=== PATIENT | female | born 1930 | race Caucasian/White ===

== ENCOUNTER 2016-09-04 01:34 | Inpatient (IN) | payer MEDICARE, BC ==
[2016-09-04] VITALS (11 sets, daily range): BP systolic 79–124; BP diastolic 47–85
[~2016-09-04] VITALS: Ht 149.9 cm; Wt 40.8 kg
[2016-09-04] MEDS ORDERED: Pantoprazole Inj IV ONE (02:15)
[2016-09-04 02:40] LABS: MEAN CORPUSCULAR HEMOGLOBIN 23.6 PG (27.0-31.0); MEAN CORPUSCULAR HGB CONC 31.8 G/DL (32.0-36.0); MEAN CORPUSCULAR VOLUME 74 FL (80-99); MEAN PLATELET VOLUME 6.2 FL (6.5-10.1); PLATELET COUNT 450 K/UL (150-450); RED BLOOD COUNT 6.06 M/UL (4.20-5.40); RED CELL DISTRIBUTION WIDTH 20.2 % (11.6-14.8)
[2016-09-04 02:53] LABS: WHITE BLOOD COUNT 31.1 K/UL (4.8-10.8)
[2016-09-04 03:01] LABS: ALANINE AMINOTRANSFERASE 87 U/L (3-33); ANION GAP 13 (5-15); ASPARTATE AMINO TRANSFERASE 79 U/L (5-40); CALCIUM 9.7 mg/dL (8.6-10.2); CARBON DIOXIDE 27 mEQ/L (20-30); CHLORIDE 91 mEQ/L (98-107); CREATININE 0.8 mg/dL (0.5-0.9); HEMOLYSIS 4; LIPASE 18 U/L (< 60); POTASSIUM 4.8 mEQ/L (3.4-4.9); SODIUM 131 mEQ/L (135-145); TOTAL PROTEIN 4.2 g/dL (6.6-8.7)
[2016-09-04 03:04] LABS: PROTHROMBIN TIME 10.3 SEC (9.30-11.50)
[2016-09-04 03:06] LABS: TROPONIN I < 0.30 ng/mL (<=0.30)
[2016-09-04 03:24] LABS: CKMB < 1.5 ng/mL (< 3.8)
[2016-09-04 03:31] LABS: APPEARANCE,URINE CLEAR; KETONES,URINE NEGATIVE (NEGATIVE); LEUKOCYTE ESTERASE ,URINE NEGATIVE (NEGATIVE); NITRITE,URINE NEGATIVE (NEGATIVE); PH,URINE 6 (4.5-8.0); PROTEIN,URINE 1+ (NEGATIVE); UROBILINOGEN,URINE NORMAL MG/DL (0.0-1.0)
[2016-09-04 03:32] LABS: RBC,URINE 0-2 /HPF (0 - 2); SQUAMOUS EPITHELIAL CELL,UR FEW /LPF (NONE/OCC); WBC,URINE 0 /HPF (0 - 2)
[2016-09-04] MEDS ORDERED: LOSARTAN POTAS100 MG ORAL (03:34)
[2016-09-04] MEDS ORDERED: CRESTOR10 M2 ORAL (03:34)
[2016-09-04] MEDS ORDERED: SYNTHROID112 MCG ORAL (03:34)
[2016-09-04 03:41] LABS: BAND NEUTROPHILS % (MANUAL) 2 % (0-8); BASOPHILS % (MANUAL) 0 % (0-2); EOSINOPHILS % (MANUAL) 0 % (0-3); LYMPHOCYTES % (MANUAL) 11 % (20-45); NEUTROPHILS % (MANUAL) 80 % (45-75); PLATELET ESTIMATE ADEQUATE; TOTAL CELLS COUNTED 100
[2016-09-04 03:42] LABS: OVALOCYTES 2+
[2016-09-04 03:43] LABS: ANISOCYTOSIS 1+; PLATELET MORPHOLOGY NORMAL; POIKILOCYTOSIS 1+
[2016-09-04] MEDS ORDERED: BENZONATATE100 MG ORAL (04:07)
[2016-09-04] MEDS ORDERED: DILANTIN100 MG ORAL (04:08)
[2016-09-04] MEDS ORDERED: ASPIRIN81 MG ORAL (04:09)
[2016-09-04] MEDS ORDERED: Piperacillin/Tazobactam 3.375 GM in NS 110 ML IVPB ONE (04:30)
[2016-09-04 04:36] LABS: REFLEX LACTIC ACID YES OR NO YES
[2016-09-04] MEDS ORDERED: Zosyn 3.375gm inj ONE (04:45)
--- NOTE | 2016-09-04 07:33 | Emergency Room Report ---
History of Present Illness General Chief Complaint: Diarrhea Source: Medical Record, EMS Present Illness HPI 86-year-old female presents to ED for evaluation of diarrhea. Per EMS daughter called 911 because patient had a very large bowel movement tonight. Per daughter it was very dark. Notes having diarrhea for the last 2 days. Patient has dementia and is unable to provide any additional history at this time. No reported fevers or chills. No reported nausea or vomiting. No other aggravating relieving factors. Denies any other associated symptoms Allergies: Coded Allergies: CODEINE (Verified Allergy, Unknown, 09/04/16) Patient History Past Medical History: HTN, psych hx Past Surgical History: none Pertinent Family History: none Social History: Denies: alcohol use, drug use, smoking Now: No Immunizations: UTD Reviewed Nursing Documentation: PMH: Agreed, PSxH: Agreed Nursing Documentation-PMH Hx Cardiac Problems: Yes - HIGH CHOLESTEROL,THYROID PROBLEM Hx Hypertension: Yes History Of Psychiatric Problem: Yes - DEMENTIA Hx Seizures: Yes Review of Systems All Other Systems: limited Physical Exam Vital Signs Date Time Temp Pulse Resp B/P Pulse Ox O2 Delivery O2 Flow Rate FiO2 09/04/16 01:42 98.8 98 16 124/85 94 Room Air Sp02 EP Interpretation: reviewed, normal General Appearance: mild distress, thin Head: normocephalic Eyes: bilateral eye PERRL, bilateral eye normal inspection ENT: normal ENT inspection Neck: normal inspection Respiratory: chest non-tender, lungs clear, normal breath sounds, speaking full sentences Cardiovascular #1: regular rate, rhythm, no edema Gastrointestinal: normal bowel sounds, non tender, soft, non-distended, no guarding, no rebound Rectal: heme positive stool Genitourinary: no CVA tenderness Musculoskeletal: normal inspection Neurologic: other - dementia Psychiatric: other - dementia Skin: normal color Lymphatic: normal inspection Medical Decision Making Diagnostic Impression: Primary Impression: Lower GI bleed Additional Impression: Abdominal mass Qualified Codes: R19.00 - Intra-abdominal and pelvic swelling, mass and lump, unspecified site ER Course Hospital Course 86-year-old female presents to ED with dark-colored diarrhea x2 days Differential diagnoses include:LGIB, diarrhea, colitis, dehydration Clinical course Patient placed on stretcher. child monitor. After initial history and physical I ordered labs, IV fluids, UA, CT scan Labs - significant leukocytosis, Hb/Hct stable. electrolytes ok, UA negative CT abdomen and pelvis - large mass in left mid abdomen causing L hydroureter and hydronephrosis Abx given. patient then became hypotensive but slowly improving with IVFs Case discussed with Dr. Villaseñor and he agreed to accept the patient to his service for further care and support I feel this is a highly complex case requiring extensive working including EKG/ Rhythm strip, Xray/CT/US, Blood/urine lab work, repeat exams while in ED, and administration of strong opiates/narcotics for pain control, admission to hospital or close patient follow up. Diagnosis - LGIB, abdominal mass Patient admitted to telemetry in serious condition Labs Test 09/04/16 02:25 09/04/16 03:02 09/04/16 05:04 White Blood Count 31.1 K/UL (4.8-10.8) Red Blood Count 6.06 M/UL (4.20-5.40) Hemoglobin 14.3 G/DL (12.0-16.0) Hematocrit 45.1 % (37.0-47.0) Mean Corpuscular Volume 74 FL (80-99) Mean Corpuscular Hemoglobin 23.6 PG (27.0-31.0) Mean Corpuscular Hemoglobin Concent 31.8 G/DL (32.0-36.0) Red Cell Distribution Width 20.2 % (11.6-14.8) Platelet Count 450 K/UL (150-450) Mean Platelet Volume 6.2 FL (6.5-10.1) Neutrophils (%) (Auto) % (45.0-75.0) Lymphocytes (%) (Auto) % (20.0-45.0) Monocytes (%) (Auto) % (1.0-10.0) Eosinophils (%) (Auto) % (0.0-3.0) Basophils (%) (Auto) % (0.0-2.0) Differential Total Cells Counted 100 Neutrophils % (Manual) 80 % (45-75) Lymphocytes % (Manual) 11 % (20-45) Monocytes % (Manual) 7 % (1-10) Eosinophils % (Manual) 0 % (0-3) Basophils % (Manual) 0 % (0-2) Band Neutrophils 2 % (0-8) Platelet Estimate Adequate Platelet Morphology Normal Poikilocytosis 1+ Anisocytosis 1+ Ovalocytes 2+ Prothrombin Time 10.3 SEC (9.30-11.50) Prothromb Time International Ratio 1.0 (0.9-1.1) Activated Partial Thromboplast Time 24 SEC (23-33) Sodium Level 131 mEQ/L (135-145) Potassium Level 4.8 mEQ/L (3.4-4.9) Chloride Level 91 mEQ/L (98-107) Carbon Dioxide Level 27 mEQ/L (20-30) Anion Gap 13 (5-15) Blood Urea Nitrogen 41 mg/dL (7-23) Creatinine 0.8 mg/dL (0.5-0.9) Estimat Glomerular Filtration Rate mL/min (>60) Glucose Level 171 mg/dL (74-106) Lactic Acid Level 2.10 mmol/L (0.66-2.22) 2.20 mmol/L (0.66-2.22) Calcium Level 9.7 mg/dL (8.6-10.2) Total Bilirubin < 0.2 mg/dL (0.0-1.2) Aspartate Amino Transf (AST/SGOT) 79 U/L (5-40) Alanine Aminotransferase (ALT/SGPT) 87 U/L (3-33) Alkaline Phosphatase 86 U/L (35-104) Creatine Kinase MB < 1.5 ng/mL (< 3.8) Troponin I < 0.30 ng/mL (<=0.30) Total Protein 4.2 g/dL (6.6-8.7) Albumin 2.1 g/dL (3.5-5.2) Globulin 2.1 g/dL Albumin/Globulin Ratio 1.0 (1.0-2.7) Lipase 18 U/L (< 60) Urine Color Yellow Urine Appearance Clear Urine pH 6 (4.5-8.0) Urine Specific [place] 1.015 (1.005-1.035) Urine Protein 1+ (NEGATIVE) Urine Glucose (UA) Negative (NEGATIVE) Urine Ketones Negative (NEGATIVE) Urine Occult Blood 1+ (NEGATIVE) Urine Nitrite Negative (NEGATIVE) Urine Bilirubin Negative (NEGATIVE) Urine Urobilinogen Normal MG/DL (0.0-1.0) Urine Leukocyte Esterase Negative (NEGATIVE) Urine RBC 0-2 /HPF (0 - 2) Urine WBC 0 /HPF (0 - 2) Urine Squamous Epithelial Cells Few /LPF (NONE/OCC) Urine Bacteria None /HPF (NONE) CT/MRI/US Diagnostic Results CT/MRI/US Diagnostic Results : Imaging Test Ordered: CT A/P Impression Large heterogeneously enhancing multilobulated mass in left mid abdomen, measuring 12 cm craniocaudal, 7 cm transverse, and 11 cm AP, causing lateral displacement of left psoas muscle and compression of distal ureter causing left hydroureter and hydronephrosis Last Vital Signs Date Time Temp Pulse Resp B/P Pulse Ox O2 Delivery O2 Flow Rate FiO2 09/04/16 05:50 97.9 89 16 95/57 96 Room Air Status: improved Disposition: ADMITTED INPATIENT Condition: Serious Referrals: NON PHYSICIAN (PCP) SARAHY LEVIN M.D. September 04, 2016 07:33
--- NOTE | 2016-09-04 07:39 | Emergency Room Report ---
History of Present Illness General Chief Complaint: Diarrhea Source: Medical Record, EMS Present Illness Allergies: Coded Allergies: CODEINE (Verified Allergy, Unknown, 09/04/16) Patient History Now: No Nursing Documentation-PMH Hx Cardiac Problems: Yes - HIGH CHOLESTEROL,THYROID PROBLEM Hx Hypertension: Yes History Of Psychiatric Problem: Yes - DEMENTIA Hx Seizures: Yes Physical Exam Vital Signs Date Time Temp Pulse Resp B/P Pulse Ox O2 Delivery O2 Flow Rate FiO2 09/04/16 01:42 98.8 98 16 124/85 94 Room Air 09/04/16 07:35 2.0 Medical Decision Making Diagnostic Impression: Primary Impression: Lower GI bleed Additional Impression: Abdominal mass Qualified Codes: R19.00 - Intra-abdominal and pelvic swelling, mass and lump, unspecified site ER Course EKG- NSR, no acute ischemic changes EKG Diagnostic Results Rate: normal Rhythm: NSR ST Segments: no acute changes ASA given to the pt in ED: No Rhythm Strip Diag. Results EP Interpretation: yes Rhythm: NSR, no PVC's, no ectopy Last Vital Signs Date Time Temp Pulse Resp B/P Pulse Ox O2 Delivery O2 Flow Rate FiO2 09/04/16 07:35 20 90/49 100 Nasal Cannula 2.0 09/04/16 05:50 97.9 89 Status: improved Disposition: ADMITTED INPATIENT Condition: Serious Referrals: NON PHYSICIAN (PCP) SARAHY LEVIN M.D. September 04, 2016 07:39
[2016-09-04] MEDS ORDERED: Mylanta II UD 30ml ORAL PRN ×3 (08:00→14:00)
[2016-09-04] MEDS ORDERED: Nitroglycerin Subl 0.4mg tab (Bottle Of 25) SL PRN ×3 (08:00→13:45)
[2016-09-04] MEDS ORDERED: Morphine Sulfate 2mg/ml Inj IVP PRN ×3 (08:00→15:00)
[2016-09-04] MEDS ORDERED: D5NS 1,000 ML IV SCH ×2 (08:30→11:00)
[2016-09-04] MEDS ORDERED: Phytonadione 10 MG in D5W 55 ML IVPB ONE ×3 (09:00→11:00)
[2016-09-04] MEDS ORDERED: Losartan 50mg tab ORAL PRN ×3 (10:00→14:00)
[2016-09-04] MEDS ORDERED: Amikacin Rx to dose MISC PRN ×2 (11:15→14:00)
--- NOTE | 2016-09-04 11:21 | History and Physical ---
History of Present Illness General Date patient seen: September 04, 2016 Reason for Hospitalization: Diarrhea Present Illness HPI 86-year-old female with hx of HTN, dementia, bed bound presents from home to ED for evaluation of dark stool Per EMS daughter called 911 because patient had a very large dark bowel movement last night as well as for the last 2 days. Patient has dementia and is unable to provide any additional history at this time. Pt was hypotensive in ER initially. Her BP improved with IV fluids but now bp is at 80's. She has cold extremities. She is awake and seems comfortable. Allergies: Coded Allergies: CODEINE (Verified Allergy, Unknown, 09/04/16) Medication History Scheduled Aspirin* (Aspirin*), 81 MG ORAL DAILY, (Reported) Levothyroxine Sodium* (Synthroid*), 112 MCG ORAL DAILY, (Reported) Rosuvastatin Calcium* (Crestor*), 10 MG ORAL BEDTIME, (Reported) Scheduled PRN Benzonatate* (Benzonatate*), 100 MG ORAL THREE TIMES A DAY PRN for For Cough, ( Reported) Losartan Potassium (Losartan Potassium), 100 MG ORAL DAILY PRN for For High Blood Pressure, (Reported) Miscellaneous Medications Phenytoin Sodium Extended* (Dilantin*), Unknown Dose ORAL, (Reported) Patient History Healthcare decision maker Resuscitation status Advanced Directive on File Past Medical/Surgical History Past Medical/Surgical History: (1) Dementia (2) HTN (hypertension) (3) Seizure disorder (4) Hypothyroidism Review of Systems All Other Systems: negative except mentioned in HPI Physical Exam General Appearance: cachetic Lines, tubes and drains: peripheral HEENT: normocephalic, atraumatic Neck: non-tender, normal alignment Respiratory/Chest: chest wall non-tender, normal breath sounds Cardiovascular/Chest: normal peripheral pulses, normal rate Abdomen: normal bowel sounds, non tender Extremities: normal range of motion, severe edema, other - cold Skin Exam: mottled - in junior area bilaterally Last 24 Hour Vital Signs Date Time Temp Pulse Resp B/P Pulse Ox O2 Delivery O2 Flow Rate FiO2 09/04/16 08:41 97.8 78 20 89/56 95 Nasal Cannula 2.0 09/04/16 08:00 81 20 93/53 100 Nasal Cannula 2.0 09/04/16 07:48 97.9 20 90/49 100 Nasal Cannula 2.0 09/04/16 07:35 86 20 90/49 100 Nasal Cannula 2.0 09/04/16 05:50 97.9 89 16 95/57 96 Room Air 09/04/16 03:50 97.9 97 17 105/59 96 Room Air 09/04/16 01:50 98.8 100 16 124/85 94 Room Air 09/04/16 01:42 98.8 98 16 124/85 94 Room Air Intake and Output 09/03/16 09/04/16 19:00 07:00 Intake Total 500 ml Balance 500 ml Intake IV Total 500 ml # Voids 1 Laboratory Tests Test 09/04/16 02:25 09/04/16 02:26 09/04/16 03:02 09/04/16 05:04 White Blood Count 31.1 K/UL (4.8-10.8) *H Red Blood Count 6.06 M/UL (4.20-5.40) H Hemoglobin 14.3 G/DL (12.0-16.0) Hematocrit 45.1 % (37.0-47.0) Mean Corpuscular Volume 74 FL (80-99) L Mean Corpuscular Hemoglobin 23.6 PG (27.0-31.0) L Mean Corpuscular Hemoglobin Concent 31.8 G/DL (32.0-36.0) L Red Cell Distribution Width 20.2 % (11.6-14.8) H Platelet Count 450 K/UL (150-450) Mean Platelet Volume 6.2 FL (6.5-10.1) L Neutrophils (%) (Auto) % (45.0-75.0) Lymphocytes (%) (Auto) % (20.0-45.0) Monocytes (%) (Auto) % (1.0-10.0) Eosinophils (%) (Auto) % (0.0-3.0) Basophils (%) (Auto) % (0.0-2.0) Differential Total Cells Counted 100 Neutrophils % (Manual) 80 % (45-75) H Lymphocytes % (Manual) 11 % (20-45) L Monocytes % (Manual) 7 % (1-10) Eosinophils % (Manual) 0 % (0-3) Basophils % (Manual) 0 % (0-2) Band Neutrophils 2 % (0-8) Platelet Estimate Adequate Platelet Morphology Normal Poikilocytosis 1+ Anisocytosis 1+ Ovalocytes 2+ Prothrombin Time 10.3 SEC (9.30-11.50) Prothromb Time International Ratio 1.0 (0.9-1.1) Activated Partial Thromboplast Time 24 SEC (23-33) Sodium Level 131 mEQ/L (135-145) L Potassium Level 4.8 mEQ/L (3.4-4.9) Chloride Level 91 mEQ/L (98-107) L Carbon Dioxide Level 27 mEQ/L (20-30) Anion Gap 13 (5-15) Blood Urea Nitrogen 41 mg/dL (7-23) H Creatinine 0.8 mg/dL (0.5-0.9) Estimat Glomerular Filtration Rate mL/min (>60) Glucose Level 171 mg/dL (74-106) H Lactic Acid Level 2.10 mmol/L (0.66-2.22) 2.20 mmol/L (0.66-2.22) Calcium Level 9.7 mg/dL (8.6-10.2) Total Bilirubin < 0.2 mg/dL (0.0-1.2) Aspartate Amino Transf (AST/SGOT) 79 U/L (5-40) H Alanine Aminotransferase (ALT/SGPT) 87 U/L (3-33) H Alkaline Phosphatase 86 U/L (35-104) Creatine Kinase MB < 1.5 ng/mL (< 3.8) Troponin I < 0.30 ng/mL (<=0.30) Total Protein 4.2 g/dL (6.6-8.7) L Albumin 2.1 g/dL (3.5-5.2) L Globulin 2.1 g/dL Albumin/Globulin Ratio 1.0 (1.0-2.7) Lipase 18 U/L (< 60) CA 125 Antigen Pending Urine Color Yellow Urine Appearance Clear Urine pH 6 (4.5-8.0) Urine Specific [place] 1.015 (1.005-1.035) Urine Protein 1+ (NEGATIVE) H Urine Glucose (UA) Negative (NEGATIVE) Urine Ketones Negative (NEGATIVE) Urine Occult Blood 1+ (NEGATIVE) H Urine Nitrite Negative (NEGATIVE) Urine Bilirubin Negative (NEGATIVE) Urine Urobilinogen Normal MG/DL (0.0-1.0) Urine Leukocyte Esterase Negative (NEGATIVE) Urine RBC 0-2 /HPF (0 - 2) Urine WBC 0 /HPF (0 - 2) Urine Squamous Epithelial Cells Few /LPF (NONE/OCC) Urine Bacteria None /HPF (NONE) Height (Feet): 4 Height (Inches): 11.00 Weight (Pounds): 90 Medications Current Medications Medications (Trade) Dose Ordered Sig/Porfirio Route PRN Reason Start Time Stop Time Status Last Admin Dose Admin Acetaminophen (Tylenol) 650 mg Q4H PRN ORAL fever>100.5 09/04/16 11:00 10/04/16 10:59 Al Hydroxide/Mg Hydroxide (Mylanta II) 30 ml Q6H PRN ORAL dyspepsia 09/04/16 11:00 10/04/16 10:59 Dextrose (Dextrose 50%) STAT PRN IV Hypoglycemia 09/05/16 11:00 10/05/16 10:59 Dextrose/Sodium Chloride 1,000 ml @ 75 mls/hr [id number] IV 09/04/16 11:00 10/04/16 10:59 09/04/16 10:32 Diphenhydramine HCl (Benadryl) 25 mg Q6H PRN ORAL Itching/Pruritis 09/04/16 11:00 10/04/16 10:59 Levothyroxine Sodium (Synthroid) 112 mcg ACBREAKFAST ORAL 09/05/16 06:30 10/05/16 06:29 Losartan Potassium (Cozaar) 100 mg DAILY PRN ORAL sbp>160 09/04/16 11:00 10/04/16 10:59 Morphine Sulfate (Morphine Sulfate) 2 mg Q4H PRN IVP severe Pain (Pain Scale 7-10) 09/04/16 11:00 09/11/16 10:59 UNV Nitroglycerin (Ntg) 0.4 mg Q5M X 3 DOSES PRN SL Prn Chest Pain 09/04/16 11:00 10/04/16 10:59 Ondansetron HCl (Zofran) 4 mg Q6H PRN IVP Nausea & Vomiting 09/04/16 11:00 10/04/16 10:59 Phenytoin (Dilantin) 100 mg EVERY 8 HOURS ORAL 09/04/16 14:00 10/04/16 13:59 Phytonadione/ Dextrose (Vitamin K/D5W) 56 ml @ 110 mls/hr ONCE ONCE IVPB 09/04/16 11:00 09/04/16 11:30 09/04/16 10:32 Polyethylene Glycol (Miralax) 17 gm HSPRN PRN ORAL Constipation 09/04/16 21:00 10/04/16 20:59 Temazepam (Restoril) 15 mg HSPRN PRN ORAL Insomnia 09/04/16 21:00 09/11/16 20:59 Assessment/Plan Problem List: (1) Hemorrhagic shock SNOMED: 769589 (2) Abdominal mass ICD Codes: R19.00 - Intra-abdominal and pelvic swelling, mass and lump, unspecified site SNOMED: 054682549 Qualifiers: Qualified Codes: R19.00 - Intra-abdominal and pelvic swelling, mass and lump , unspecified site (3) Lower GI bleed ICD Codes: K92.2 - Gastrointestinal hemorrhage, unspecified SNOMED: 31596018 (4) Dementia ICD Codes: F03.90 - Unspecified dementia without behavioral disturbance SNOMED: 65272452 (5) HTN (hypertension) ICD Codes: I10 - Essential (primary) hypertension SNOMED: 29095517 (6) Hypothyroidism ICD Codes: E03.9 - Hypothyroidism, unspecified SNOMED: 38675666 (7) Seizure disorder ICD Codes: G40.909 - Epilepsy, unspecified, not intractable, without status epilepticus SNOMED: 350107440 Assessment/Plan NPO IV fluids prbc prn GI evaluation Surgery and evaluation Echo, doppler of leg arteries transfer to [facility] tumor markers dvt prophylaxis BARBARA ANDRES September 04, 2016 11:21
--- NOTE | 2016-09-04 12:29 | Diagnostic Imaging Report ---
Indication: DYSPNEA, chest pain Technique: One view of the chest Comparison: none Findings: Dense consolidation is seen at both lung bases, more so on the left than on the right. There is pleural fluid bilaterally, left greater than right. Heart size is normal. Surgical clips are seen on the right side of the mediastinum. Impression: Bilateral pleural effusions and bilateral basilar consolidation. Other findings as described
--- NOTE | 2016-09-04 12:31 | Diagnostic Imaging Report ---
Clinical Indication: Abdominal pain Technique: No oral contrast utilized, per emergency room physician request IV administration nonionic contrast. Venous phase spiral acquisition obtained through the abdomen and pelvis. Multiplanar reconstructions were generated. Total dose length product 665 mGycm. CTDIvol(s) 13 mGy. Dose reduction achieved using automated exposure control Comparison: None Findings: There is anasarca. There is diffuse and extensive edema of the subcutaneous fat, the retroperitoneal and mesenteric fat. There are moderate to large bilateral pleural effusions, slightly larger on the left than on the right. There is also small pericardial effusion There is a large mass involving the left psoas muscle and extending outside of it. This demonstrates intense peripheral enhancement but considerable central necrosis. This measures 10 cm AP by 6.7 cm transverse by 11.4 cm craniocaudad. The uterus is not demonstrated, presumed surgically absent. The liver demonstrates multiple cysts, as well as multiple subcentimeter low-attenuation lesions which are too small to characterize. The gallbladder is nondistended. No biliary ductal dilatation. The pancreas is atrophic, otherwise unremarkable. The spleen and adrenals are unremarkable. The kidneys demonstrate bilateral cysts, as well as bilateral subcentimeter low-attenuation lesions which are too small to characterize. There is mild right hydronephrosis and proximal hydroureter, although there does not appear to be any delay in enhancement of the left kidney. No pelvic mass or adenopathy. The colon demonstrates diverticulosis. No definite evidence of diverticulitis, but evaluation is limited given the degree of anasarca. There is enhancement of the colon saavedra. There is proximal jejunal wall thickening The appendix only equivocally identified, but there are no findings to suggest acute appendicitis. No free or loculated intraperitoneal air or fluid. The stomach is distended with fluid. There is apparent atelectasis of the lower esophageal sphincter, with free communication of gastric and esophageal contents. The esophagus is diffusely dilated and fluid-filled. As mentioned earlier, there are bilateral pleural effusions. There is considerable atelectasis at the left lung base. There are bilateral breast implants. That on the right appears completely ruptured. The bones demonstrate degenerative spondylosis changes. 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 There is calcification of the pubic symphysis. Impression: 10 x 6.7 x 1.4 cm mass involving the left psoas muscle, extending outside of it. Appearance is highly suspicious for malignancy. Suspect metastatic carcinoma as etiology, as enhancement characteristics and necrosis are more characteristic of such. However, primary mesenchymal tumor is certainly a possibility as well. Mild left hydronephrosis, suspect secondary to the above Proximal jejunal wall thickening, could indicate enteritis. There is colonic wall enhancement without definite thickening, could indicate mild colitis Anasarca Large bilateral pleural effusions. Left basilar parenchymal atelectasis presumably related to such Small pericardial effusion Evidence of prior hysterectomy Bilateral renal and hepatic cysts. Bilateral renal and hepatic subcentimeter low-attenuation lesions, too small to characterize, most likely benign simple cysts. No further followup necessary Patulous lower esophageal sphincter. Dilated fluid-filled esophagus, presumed secondary to such Bilateral breast implants. That on the right appears completely ruptured Degenerative spondylosis This agrees with the preliminary interpretation provided overnight by [facility] teleradiology service. The CT scanner at [facility] is accredited by the [employer] and the scans are performed -- using protocols designed to limit radiation exposure to as low as reasonably achievable to attain images of sufficient resolution adequate for diagnostic evaluation.
--- NOTE | 2016-09-04 12:47 | GI Initial Consult Note ---
Celeste Bull NMango 09/04/16 1247: History of Present Illness General Date patient seen: September 04, 2016 Time patient seen: 12:00 Reason for Hospitalization: Diarrhea Referring physician: BARBARA BURNETT Reason for Consultation: DIARRHEA Present Illness HPI 86-year-old female presents to ED for evaluation of diarrhea. Per EMS daughter called 911 because patient had a very large bowel movement tonight. Per daughter it was very dark. Notes having diarrhea for the last 2 days. Patient has dementia and is unable to provide any additional history at this time. No reported fevers or chills. No reported nausea or vomiting. No other aggravating relieving factors. Denies any other associated symptoms. GI CONSULT: HPI noted above. GI consulted for diarrhea with reports of dark stools x 2 days. KHRIS leone, JOSE. Pt presents today with stable H&H, leukocytosis, abnormal LFTs and large abdominal mass shown on CT, see full report. Unknown history of any endoscopic procedures. CT/MRI/US Diagnostic Results : Imaging Test Ordered: CT A/P Impression Large heterogeneously enhancing multilobulated mass in left mid abdomen, measuring 12 cm craniocaudal, 7 cm transverse, and 11 cm AP, causing lateral displacement of left psoas muscle and compression of distal ureter causing left hydroureter and hydronephrosis Home Meds Reported Medications Aspirin* (ASPIRIN*) 81 Mg Tab.chew, 81 MG ORAL DAILY, TAB 09/04/16 Phenytoin Sodium Extended* (DILANTIN*) 100 Mg Capsule, ORAL, #90 CAP 0 Refills 09/04/16 Benzonatate* (BENZONATATE*) 100 Mg Capsule, 100 MG ORAL THREE TIMES A DAY Y for For Cough, PERLE 09/04/16 Rosuvastatin Calcium* (CRESTOR*) 10 Mg Tablet, 10 MG ORAL BEDTIME, TAB 09/04/16 Losartan Potassium (LOSARTAN POTASSIUM) 100 Mg Tablet, 100 MG ORAL DAILY Y for For High Blood Pressure, TAB 09/04/16 Levothyroxine Sodium* (SYNTHROID*) 112 Mcg Tablet, 112 MCG ORAL DAILY, TAB Take in the morning on an empty stomach, at least 30 minutes before food. 09/04/16 Med list reviewed/reconciled: Yes Allergies: Coded Allergies: CODEINE (Verified Allergy, Unknown, 09/04/16) Patient History Limited by: medical condition History Provided By: Medical Record PMH Narrative Past Medical History: HTN, psych hx Past Surgical History: none Pertinent Family History: none Social History: Denies: alcohol use, drug use, smoking Now: No Immunizations: UTD Reviewed Nursing Documentation: PMH: Agreed, PSxH: Agreed Nursing Documentation-PM Hx Cardiac Problems: Yes - HIGH CHOLESTEROL,THYROID PROBLEM Hx Hypertension: Yes History Of Psychiatric Problem: Yes - DEMENTIA Hx Seizures: Yes Review of Systems All Other Systems: limited Physical Exam Vital Signs Date Time Temp Pulse Resp B/P Pulse Ox O2 Delivery O2 Flow Rate FiO2 09/04/16 01:42 98.8 98 16 124/85 94 Room Air 09/04/16 07:35 2.0 Sp02 EP Interpretation: reviewed Labs Laboratory Tests Test 09/04/16 02:25 09/04/16 02:26 09/04/16 03:02 09/04/16 05:04 White Blood Count 31.1 K/UL (4.8-10.8) *H Red Blood Count 6.06 M/UL (4.20-5.40) H Hemoglobin 14.3 G/DL (12.0-16.0) Hematocrit 45.1 % (37.0-47.0) Mean Corpuscular Volume 74 FL (80-99) L Mean Corpuscular Hemoglobin 23.6 PG (27.0-31.0) L Mean Corpuscular Hemoglobin Concent 31.8 G/DL (32.0-36.0) L Red Cell Distribution Width 20.2 % (11.6-14.8) H Platelet Count 450 K/UL (150-450) Mean Platelet Volume 6.2 FL (6.5-10.1) L Neutrophils (%) (Auto) % (45.0-75.0) Lymphocytes (%) (Auto) % (20.0-45.0) Monocytes (%) (Auto) % (1.0-10.0) Eosinophils (%) (Auto) % (0.0-3.0) Basophils (%) (Auto) % (0.0-2.0) Differential Total Cells Counted 100 Neutrophils % (Manual) 80 % (45-75) H Lymphocytes % (Manual) 11 % (20-45) L Monocytes % (Manual) 7 % (1-10) Eosinophils % (Manual) 0 % (0-3) Basophils % (Manual) 0 % (0-2) Band Neutrophils 2 % (0-8) Platelet Estimate Adequate Platelet Morphology Normal Poikilocytosis 1+ Anisocytosis 1+ Ovalocytes 2+ Prothrombin Time 10.3 SEC (9.30-11.50) Prothromb Time International Ratio 1.0 (0.9-1.1) Activated Partial Thromboplast Time 24 SEC (23-33) Sodium Level 131 mEQ/L (135-145) L Potassium Level 4.8 mEQ/L (3.4-4.9) Chloride Level 91 mEQ/L (98-107) L Carbon Dioxide Level 27 mEQ/L (20-30) Anion Gap 13 (5-15) Blood Urea Nitrogen 41 mg/dL (7-23) H Creatinine 0.8 mg/dL (0.5-0.9) Estimat Glomerular Filtration Rate mL/min (>60) Glucose Level 171 mg/dL (74-106) H Lactic Acid Level 2.10 mmol/L (0.66-2.22) 2.20 mmol/L (0.66-2.22) Calcium Level 9.7 mg/dL (8.6-10.2) Total Bilirubin < 0.2 mg/dL (0.0-1.2) Aspartate Amino Transf (AST/SGOT) 79 U/L (5-40) H Alanine Aminotransferase (ALT/SGPT) 87 U/L (3-33) H Alkaline Phosphatase 86 U/L (35-104) Creatine Kinase MB < 1.5 ng/mL (< 3.8) Troponin I < 0.30 ng/mL (<=0.30) Total Protein 4.2 g/dL (6.6-8.7) L Albumin 2.1 g/dL (3.5-5.2) L Globulin 2.1 g/dL Albumin/Globulin Ratio 1.0 (1.0-2.7) Lipase 18 U/L (< 60) CA 125 Antigen Pending Urine Color Yellow Urine Appearance Clear Urine pH 6 (4.5-8.0) Urine Specific [place] 1.015 (1.005-1.035) Urine Protein 1+ (NEGATIVE) H Urine Glucose (UA) Negative (NEGATIVE) Urine Ketones Negative (NEGATIVE) Urine Occult Blood 1+ (NEGATIVE) H Urine Nitrite Negative (NEGATIVE) Urine Bilirubin Negative (NEGATIVE) Urine Urobilinogen Normal MG/DL (0.0-1.0) Urine Leukocyte Esterase Negative (NEGATIVE) Urine RBC 0-2 /HPF (0 - 2) Urine WBC 0 /HPF (0 - 2) Urine Squamous Epithelial Cells Few /LPF (NONE/OCC) Urine Bacteria None /HPF (NONE) General Appearance: no apparent distress Head: normocephalic EENT: normal ENT inspection Neck: supple Respiratory: normal breath sounds Cardiovascular: normal rate Gastrointestinal: normal inspection, non tender, soft Rectal: deferred Genitourinary: no CVA tenderness Neurologic: alert Skin: normal inspection, normal color, no rash, warm/dry Lymphatic: normal inspection, no adenopathy Current Medications Current Medications Medications (Trade) Dose Ordered Sig/Porfirio Route PRN Reason Start Time Stop Time Status Last Admin Dose Admin Acetaminophen (Tylenol) 650 mg Q4H PRN ORAL fever>100.5 09/04/16 11:00 10/04/16 10:59 Al Hydroxide/Mg Hydroxide (Mylanta II) 30 ml Q6H PRN ORAL dyspepsia 09/04/16 11:00 10/04/16 10:59 Amikacin Protocol 1 ea 1 ea DAILY PRN MISC Per rx protocol 09/04/16 11:15 10/04/16 11:14 Amikacin Sulfate 500 mg/Sodium Chloride 112 ml @ 112 mls/hr Q36H IV 09/04/16 13:00 09/11/16 12:59 Dextrose (Dextrose 50%) STAT PRN IV Hypoglycemia 09/05/16 11:00 10/05/16 10:59 Dextrose/Sodium Chloride (D5ns) 1,000 ml @ 75 mls/hr [id number] IV 09/04/16 11:00 10/04/16 10:59 09/04/16 10:32 Diphenhydramine HCl (Benadryl) 25 mg Q6H PRN ORAL Itching/Pruritis 09/04/16 11:00 10/04/16 10:59 Levothyroxine Sodium (Synthroid) 112 mcg ACBREAKFAST ORAL 09/05/16 06:30 10/05/16 06:29 Losartan Potassium (Cozaar) 100 mg DAILY PRN ORAL sbp>160 09/04/16 11:00 10/04/16 10:59 Morphine Sulfate (Morphine Sulfate) 2 mg Q4H PRN IVP severe Pain (Pain Scale 7-10) 09/04/16 11:00 09/11/16 10:59 UNV Nitroglycerin (Ntg) 0.4 mg Q5M X 3 DOSES PRN SL Prn Chest Pain 09/04/16 11:00 10/04/16 10:59 Ondansetron HCl (Zofran) 4 mg Q6H PRN IVP Nausea & Vomiting 09/04/16 11:00 10/04/16 10:59 Phenytoin (Dilantin) 100 mg EVERY 8 HOURS ORAL 09/04/16 14:00 10/04/16 13:59 Piperacillin Sod/ Tazobactam Sod/ Sodium Chloride (Zosyn/Sodium Chloride) 110 ml @ 27.5 mls/hr Q8HR@0730,1530,2330 IVPB 09/04/16 15:30 09/11/16 15:29 Polyethylene Glycol (Miralax) 17 gm HSPRN PRN ORAL Constipation 09/04/16 21:00 10/04/16 20:59 Temazepam (Restoril) 15 mg HSPRN PRN ORAL Insomnia 09/04/16 21:00 09/11/16 20:59 Vancomycin HCl 1 ea 1 ea DAILY PRN MISC Per rx protocol 09/04/16 11:15 10/04/16 11:14 Vancomycin HCl/ Dextrose (Vancomycin/D5W) 275 ml @ 183.708 mls/hr Q48H IVPB 09/04/16 14:00 09/09/16 13:59 GI: Plan Problems: (1) Diarrhea (2) Abdominal mass (3) Lower GI bleed (4) Hypothyroidism (5) HTN (hypertension) (6) LFT elevation Plan APCT reviewed >> large abdominal mass defer GI procedures at this time >> recommend heme/oncology consult ordered CT guided biopsy of abdominal mass ordered tumor markers: CA19-9, CA 125, CEA ordered OB stool r/o GI bleed ordered hep panel H2B abx fu cdiff fu labs Discussed with Dr. Michel. Thank you for referring this patient, we will follow. TONJA MICHEL 09/12/16 1111: History of Present Illness General Reason for Hospitalization: Diarrhea Present Illness Home Meds Reported Medications Aspirin* (ASPIRIN*) 81 Mg Tab.chew, 81 MG ORAL DAILY, TAB 09/04/16 Phenytoin Sodium Extended* (DILANTIN*) 100 Mg Capsule, ORAL, #90 CAP 0 Refills 09/04/16 Benzonatate* (BENZONATATE*) 100 Mg Capsule, 100 MG ORAL THREE TIMES A DAY Y for For Cough, PERLE 09/04/16 Rosuvastatin Calcium* (CRESTOR*) 10 Mg Tablet, 10 MG ORAL BEDTIME, TAB 09/04/16 Losartan Potassium (LOSARTAN POTASSIUM) 100 Mg Tablet, 100 MG ORAL DAILY Y for For High Blood Pressure, TAB 09/04/16 Levothyroxine Sodium* (SYNTHROID*) 112 Mcg Tablet, 112 MCG ORAL DAILY, TAB Take in the morning on an empty stomach, at least 30 minutes before food. 09/04/16 Allergies: Coded Allergies: CODEINE (Verified Allergy, Unknown, 09/04/16) GI: Plan Plan The patient was seen and examined at bedside and all new and available data was reviewed in the patients chart. I agree with the above findings, impression and plan. (Patient seen earlier today. Signature stamp does not reflect patient encounter time.). -Michelle Timmons MDh Sathya N.PDonna September 04, 2016 12:47 TONJA MICHEL September 12, 2016 11:11
[2016-09-04] MEDS ORDERED: Amikacin 500 MG in NS 110 ML IV SCH (13:00)
[2016-09-04] MEDS: Phenytoin 100mg cap ORAL SCH ×3 (14:00→22:26)
[2016-09-04] MEDS ORDERED: Phenytoin 100mg cap ORAL SCH ×2 (14:00)
[2016-09-04] MEDS ORDERED: Vancomycin 1gm/D5W 275ml IVPB SCH ×2 (14:00)
[2016-09-04] MEDS ORDERED: Vancomycin 1 GM in D5W 275 ML IVPB SCH (14:00)
[2016-09-04] MEDS: D5NS 1,000 ML IV SCH (14:12)
[2016-09-04] MEDS ORDERED: Piperacillin/Tazobactam 3.375 GM in NS 110 ML IVPB SCH (15:30)
--- NOTE | 2016-09-04 16:07 | Wound Care Consultation ---
Wound Assessment Wound Assessment : Wound Present on Admission: Yes New Wound: No Status Change of Wound: No Wound Location Body Site Modif: mid Wound Location Body Site: other - sacrococcygeal Wound Type: pressure ulcer Gabo Test: Does not Gabo Pressure Ulcer Stage: deep tissue injury Wound Thickness: Full Thickness Wound Length: 5.5 Wound Width: 6.0 Wound Depth: utd Percent of Wound Purple/Maroon: 100 Wound Drainage Amount: None Wound Drainage Odor: None/Absent Tissue Surrounding Wound: Erythemic Wound General Appearance: Reddened - purplish Wound Comment #1 Sacrococcygeal DTI pressure ulcer #2 Both lower legs with multiple discoloration Recommendation -Local wound care per protocol for DTI -Keep clean and dry -Turn and reposition -Optimize nutrition -Low air loss overlay mattress -Offload both heels -Heel protector on both heels -Assess and f/u accordingly for any changes CYNTHIA NIÑO RN September 04, 2016 16:07
[2016-09-04] MEDS: Piperacillin/Tazobactam 3.375 GM in NS 110 ML IVPB SCH ×2 (17:26→23:46)
--- NOTE | 2016-09-04 18:19 | Cardiology Report ---
APPROVED REPORT EXAM: Two-dimensional and M-mode echocardiogram with Doppler and color Doppler. INDICATION Left ventricular function M-Mode DIMENSIONS IVSd0.5 (0.7-1.1cm)Left Atrium (MM)2.4 (1.6-4.0cm) LVDd3.1 (3.5-5.6cm)Aortic Root2.3 (2.0-3.7cm) PWd1.0 (0.7-1.1cm)Aortic Cusp Exc.1.5 (1.5-2.0cm) LVDs1.9 (2.5-4.0cm) PWs1.3 cm Technically difficult study due to poor acoustic windows due to Patients implants. Lack of apical windows. Normal left ventricular chamber size, systolic function and wall motion. Left ventricular ejection fraction estimated to be 60-65%. Mild left ventricular hypertrophy. Small posterior pericardial effusion. Mild focal aortic valve sclerosis with adequate cusp excursion Thickened mitral valve leaflets with normal excursion. Mitral annulus and aortic root calcification. Pulmonic valve not well visualized. Normal tricuspid valve structure. IVC not obtainable. A color flow and spectral Doppler study was performed and revealed: No tricuspid regurgitation.
--- NOTE | 2016-09-04 18:33 | Cardiology Report ---
APPROVED REPORT EKG Measurement Heart [id number] [place] [id number] Normal sinus rhythm Possible Left atrial enlargement Nonspecific ST and T wave abnormality Abnormal ECG
[2016-09-04] MEDS ORDERED: Miralax 17gm pkt ORAL PRN ×3 (21:00)
--- NOTE | 2016-09-04 22:32 | Consultation ---
DATE OF CONSULTATION: 09/04/2016 REASON FOR CONSULTATION: Left hydronephrosis. HISTORY: I was asked by Dr. Villaseñor to see the patient. She is an 86-year-old female that was diagnosed with a large abdominal mass and left hydronephrosis. She was admitted to the emergency department with possible GI bleeding and diarrhea. The patient has dementia and is unable to provide any additional history at the time of my consultation. She had a CT scan done for the above complaints and found to have a 10 cm left psoas mass suspicious for either metastatic or primary malignancy and mild left hydronephrosis. REVIEW OF SYMPTOMS: Unobtainable because the patient does not really answers any questions. FAMILY HISTORY: Also unknown to me. PHYSICAL EXAMINATION: GENERAL APPEARANCE: She is afebrile. VITAL SIGNS: Stable. LUNGS: Clear to auscultation. CARDIOVASCULAR: Regular rate and rhythm. ABDOMEN: Soft and slightly distended. No costovertebral tenderness. PELVIC: Normal. LABORATORY AND DIAGNOSTIC STUDIES: CT results were reviewed. She has a large heterogenic mass in the left mid abdomen approximately 10 to 12 cm and with mild left hydronephrosis most likely from external compression of the mass. Her blood test showed a white blood cell count was 31,000, hemoglobin 14, and hematocrit 45.1. Her creatinine is 0.8. Urinalysis showed 2 red blood cells and no white blood cells. ASSESSMENT AND PLAN: This is an unfortunate 86-year-old lady with abdominal mass and mild left hydronephrosis. I think at this point, I do not recommend any further action in terms of her left kidney. If she would ever be considered as a surgical candidate for the removal of this mass she probably would need a left ureteral stenting. Other than that, considering her stable renal function and overall prognosis I do not think that intervention will be needed and I will be happy to follow this patient conservatively with you. Abdon Valentin M.D. DR: MONICA JOB#: [id number] CC:
[2016-09-05] VITALS: BP 128/109
[2016-09-05 01:28] LABS: MEAN CORPUSCULAR HEMOGLOBIN 24.1 PG (27.0-31.0); MEAN CORPUSCULAR HGB CONC 32.2 G/DL (32.0-36.0); MEAN CORPUSCULAR VOLUME 75 FL (80-99); MEAN PLATELET VOLUME 5.7 FL (6.5-10.1); PLATELET COUNT 301 K/UL (150-450); RED BLOOD COUNT 4.83 M/UL (4.20-5.40); RED CELL DISTRIBUTION WIDTH 20.4 % (11.6-14.8)
[2016-09-05 01:35] LABS: WHITE BLOOD COUNT 23.9 K/UL (4.8-10.8)
[2016-09-05 01:46] LABS: PROTHROMBIN TIME 10.1 SEC (9.30-11.50)
[2016-09-05 02:12] LABS: BAND NEUTROPHILS % (MANUAL) 3 % (0-8); EOSINOPHILS % (MANUAL) 2 % (0-3); LYMPHOCYTES % (MANUAL) 2 % (20-45); NEUTROPHILS % (MANUAL) 88 % (45-75); TOTAL CELLS COUNTED 100
[2016-09-05 02:13] LABS: ANISOCYTOSIS 1+; BASOPHILS % (MANUAL) 0 % (0-2); OVALOCYTES 2+; PLATELET ESTIMATE ADEQUATE; POIKILOCYTOSIS 1+
[2016-09-05 02:14] LABS: PLATELET MORPHOLOGY NORMAL
[2016-09-05 03:07] LABS: ALANINE AMINOTRANSFERASE 56 U/L (3-33); ALBUMIN/GLOBULIN RATIO 1.2 (1.0-2.7); AMYLASE 56 U/L (10-110); ANION GAP 12 (5-15); ASPARTATE AMINO TRANSFERASE 30 U/L (5-40); CALCIUM 8.2 mg/dL (8.6-10.2); CARBON DIOXIDE 23 mEQ/L (20-30); CHLORIDE 98 mEQ/L (98-107); CREATININE 0.6 mg/dL (0.5-0.9); HEMOLYSIS 6; LIPASE 14 U/L (< 60); POTASSIUM 3.6 mEQ/L (3.4-4.9); SODIUM 133 mEQ/L (135-145); TOTAL PROTEIN 3.6 g/dL (6.6-8.7)
[2016-09-05] MEDS: D5NS 1,000 ML IV SCH ×3 (03:20→21:00)
[2016-09-05 04:00] VITALS: BP 112/66
[2016-09-05] MEDS ORDERED: Amikacin 500 MG in NS 110 ML IV SCH (05:00)
[2016-09-05] MEDS ORDERED: Amikacin 500mg/2mL Inj ONE (05:13)
[2016-09-05] MEDS: Phenytoin 100mg cap ORAL SCH ×3 (06:22→22:20)
[2016-09-05 08:00] VITALS: BP 100/60
[2016-09-05] MEDS: Piperacillin/Tazobactam 3.375 GM in NS 110 ML IVPB SCH ×3 (08:37→23:30)
[2016-09-05] MEDS ORDERED: NS 275ml ONE ×2 (10:37→10:50)
[2016-09-05] MEDS ORDERED: D5NS 1000ml IV ONE ×2 (10:37→10:50)
[2016-09-05] MEDS ORDERED: Tubing IV Secondary IV ONE ×2 (10:37→10:50)
--- NOTE | 2016-09-05 11:09 | GI Progress Note ---
Assessment/Plan Problems: (1) LFT elevation ICD Codes: R94.5 - Abnormal results of liver function studies SNOMED: 920321057 (2) Hemorrhagic shock SNOMED: 145289 (3) Diarrhea ICD Codes: R19.7 - Diarrhea, unspecified SNOMED: 69754608 (4) Abdominal mass ICD Codes: R19.00 - Intra-abdominal and pelvic swelling, mass and lump, unspecified site SNOMED: 850116696 Qualifiers: Qualified Codes: R19.00 - Intra-abdominal and pelvic swelling, mass and lump , unspecified site (5) Dementia ICD Codes: F03.90 - Unspecified dementia without behavioral disturbance SNOMED: 89986539 (6) Seizure disorder ICD Codes: G40.909 - Epilepsy, unspecified, not intractable, without status epilepticus SNOMED: 474205004 (7) Lower GI bleed ICD Codes: K92.2 - Gastrointestinal hemorrhage, unspecified SNOMED: 30954992 (8) Hypothyroidism ICD Codes: E03.9 - Hypothyroidism, unspecified SNOMED: 17714474 (9) Severe malnutrition ICD Codes: E43 - Unspecified severe protein-calorie malnutrition SNOMED: 52391859 Status: unchanged Status Narrative Discussed with Dr. Ramirez. Assessment/Plan APCT reviewed >> large abdominal mass CA 125 elevation >> 77.9 CEA elevation >> 3.9 CA19-9 >> unremarkable OB stool positive cdiff positive defer GI procedures at this time >> recommend heme/oncology consult monitor H&H, transfuse prn fu CT guided biopsy of abdominal mass fu hep panel H2B abx fu labs Subjective Subjective limited Objective Last 24 Hour Vital Signs Date Time Temp Pulse Resp B/P Pulse Ox O2 Delivery O2 Flow Rate FiO2 09/05/16 08:00 87 09/05/16 08:00 97.7 87 19 100/60 99 Nasal Cannula 3.0 09/05/16 04:00 91 09/05/16 04:00 98.2 94 20 112/66 91 Nasal Cannula 3.0 09/05/16 00:00 94 09/05/16 00:00 98.6 91 20 128/109 97 Nasal Cannula 3.0 09/04/16 20:00 93 09/04/16 15:54 85 09/04/16 15:52 98.0 88 22 95/61 97 Nasal Cannula 3.0 09/04/16 13:41 97.0 78 20 91/57 95 Nasal Cannula 2.0 09/04/16 12:54 95/47 09/04/16 12:19 91/57 09/04/16 12:06 81 09/04/16 11:42 97.0 81 20 79/51 95 Nasal Cannula 2.0 Intake and Output 09/04/16 09/05/16 19:00 07:00 Intake Total 4734.000 ml 1127.0 ml Balance 4734.000 ml 1127.0 ml Intake Oral 50 ml IV Total 4734.000 ml 1077.0 ml # Voids 3 3 # Bowel Movements 5 Laboratory Tests Test 09/04/16 11:50 09/05/16 01:00 Stool Occult Blood Positive (NEGATIVE) White Blood Count 23.9 K/UL (4.8-10.8) *H Red Blood Count 4.83 M/UL (4.20-5.40) Hemoglobin 11.6 G/DL (12.0-16.0) L Hematocrit 36.1 % (37.0-47.0) L Mean Corpuscular Volume 75 FL (80-99) L Mean Corpuscular Hemoglobin 24.1 PG (27.0-31.0) L Mean Corpuscular Hemoglobin Concent 32.2 G/DL (32.0-36.0) Red Cell Distribution Width 20.4 % (11.6-14.8) H Platelet Count 301 K/UL (150-450) Mean Platelet Volume 5.7 FL (6.5-10.1) L Neutrophils (%) (Auto) % (45.0-75.0) Lymphocytes (%) (Auto) % (20.0-45.0) Monocytes (%) (Auto) % (1.0-10.0) Eosinophils (%) (Auto) % (0.0-3.0) Basophils (%) (Auto) % (0.0-2.0) Differential Total Cells Counted 100 Neutrophils % (Manual) 88 % (45-75) H Lymphocytes % (Manual) 2 % (20-45) L Monocytes % (Manual) 5 % (1-10) Eosinophils % (Manual) 2 % (0-3) Basophils % (Manual) 0 % (0-2) Band Neutrophils 3 % (0-8) Platelet Estimate Adequate Platelet Morphology Normal Poikilocytosis 1+ Anisocytosis 1+ Ovalocytes 2+ Prothrombin Time 10.1 SEC (9.30-11.50) Prothromb Time International Ratio 1.0 (0.9-1.1) Activated Partial Thromboplast Time 27 SEC (23-33) Sodium Level 133 mEQ/L (135-145) L Potassium Level 3.6 mEQ/L (3.4-4.9) Chloride Level 98 mEQ/L (98-107) Carbon Dioxide Level 23 mEQ/L (20-30) Anion Gap 12 (5-15) Blood Urea Nitrogen 28 mg/dL (7-23) H Creatinine 0.6 mg/dL (0.5-0.9) Estimat Glomerular Filtration Rate mL/min (>60) Glucose Level 104 mg/dL (74-106) Calcium Level 8.2 mg/dL (8.6-10.2) L Total Bilirubin < 0.2 mg/dL (0.0-1.2) Aspartate Amino Transf (AST/SGOT) 30 U/L (5-40) Alanine Aminotransferase (ALT/SGPT) 56 U/L (3-33) H Alkaline Phosphatase 63 U/L (35-104) Total Protein 3.6 g/dL (6.6-8.7) L Albumin 2.0 g/dL (3.5-5.2) L Globulin 1.6 g/dL Albumin/Globulin Ratio 1.2 (1.0-2.7) Amylase Level 56 U/L (10-110) Lipase 14 U/L (< 60) Carcinoembryonic Antigen 3.9 ng/mL H CA 19-9 Antigen 5.27 U/mL (< 37) Random Amikacin Level 7.4 ug/mL Microbiology Date/Time Source Procedure Growth Status 09/04/16 11:50 Stool Clostridium difficile Toxin Assay - Final Complete 09/04/16 14:00 Indwelling Cath Urine Culture - Preliminary NO GROWTH Resulted Height (Feet): 4 Height (Inches): 11.00 Weight (Pounds): 90 General Appearance: no apparent distress Cardiovascular: normal rate Respiratory/Chest: normal breath sounds Abdominal Exam: normal bowel sounds, non tender, soft Celeste Bull N.PDonna September 05, 2016 11:09
--- NOTE | 2016-09-05 11:40 | General Surgery Progress Note ---
General Surgery-Progress Note Subjective Additional Comments patient seen and examined at bedside with family present. no acute events. improved. Objective Last 24 Hour Vital Signs Date Time Temp Pulse Resp B/P Pulse Ox O2 Delivery O2 Flow Rate FiO2 09/05/16 08:00 87 09/05/16 08:00 97.7 87 19 100/60 99 Nasal Cannula 3.0 09/05/16 04:00 91 09/05/16 04:00 98.2 94 20 112/66 91 Nasal Cannula 3.0 09/05/16 00:00 94 09/05/16 00:00 98.6 91 20 128/109 97 Nasal Cannula 3.0 09/04/16 20:00 93 09/04/16 15:54 85 09/04/16 15:52 98.0 88 22 95/61 97 Nasal Cannula 3.0 09/04/16 13:41 97.0 78 20 91/57 95 Nasal Cannula 2.0 09/04/16 12:54 95/47 09/04/16 12:19 91/57 09/04/16 12:06 81 09/04/16 11:42 97.0 81 20 79/51 95 Nasal Cannula 2.0 I&O Intake and Output 09/04/16 09/05/16 19:00 07:00 Intake Total 4734.000 ml 1127.0 ml Balance 4734.000 ml 1127.0 ml Intake Oral 50 ml IV Total 4734.000 ml 1077.0 ml # Voids 3 3 # Bowel Movements 5 Cardiovascular: RSR Respiratory: clear Abdomen: soft, non-tender, present bowel sounds Extremities: edema, no tenderness, no cyanosis Laboratory Tests Test 09/04/16 11:50 09/05/16 01:00 Stool Occult Blood Positive (NEGATIVE) White Blood Count 23.9 K/UL (4.8-10.8) *H Red Blood Count 4.83 M/UL (4.20-5.40) Hemoglobin 11.6 G/DL (12.0-16.0) L Hematocrit 36.1 % (37.0-47.0) L Mean Corpuscular Volume 75 FL (80-99) L Mean Corpuscular Hemoglobin 24.1 PG (27.0-31.0) L Mean Corpuscular Hemoglobin Concent 32.2 G/DL (32.0-36.0) Red Cell Distribution Width 20.4 % (11.6-14.8) H Platelet Count 301 K/UL (150-450) Mean Platelet Volume 5.7 FL (6.5-10.1) L Neutrophils (%) (Auto) % (45.0-75.0) Lymphocytes (%) (Auto) % (20.0-45.0) Monocytes (%) (Auto) % (1.0-10.0) Eosinophils (%) (Auto) % (0.0-3.0) Basophils (%) (Auto) % (0.0-2.0) Differential Total Cells Counted 100 Neutrophils % (Manual) 88 % (45-75) H Lymphocytes % (Manual) 2 % (20-45) L Monocytes % (Manual) 5 % (1-10) Eosinophils % (Manual) 2 % (0-3) Basophils % (Manual) 0 % (0-2) Band Neutrophils 3 % (0-8) Platelet Estimate Adequate Platelet Morphology Normal Poikilocytosis 1+ Anisocytosis 1+ Ovalocytes 2+ Prothrombin Time 10.1 SEC (9.30-11.50) Prothromb Time International Ratio 1.0 (0.9-1.1) Activated Partial Thromboplast Time 27 SEC (23-33) Sodium Level 133 mEQ/L (135-145) L Potassium Level 3.6 mEQ/L (3.4-4.9) Chloride Level 98 mEQ/L (98-107) Carbon Dioxide Level 23 mEQ/L (20-30) Anion Gap 12 (5-15) Blood Urea Nitrogen 28 mg/dL (7-23) H Creatinine 0.6 mg/dL (0.5-0.9) Estimat Glomerular Filtration Rate mL/min (>60) Glucose Level 104 mg/dL (74-106) Calcium Level 8.2 mg/dL (8.6-10.2) L Total Bilirubin < 0.2 mg/dL (0.0-1.2) Aspartate Amino Transf (AST/SGOT) 30 U/L (5-40) Alanine Aminotransferase (ALT/SGPT) 56 U/L (3-33) H Alkaline Phosphatase 63 U/L (35-104) Total Protein 3.6 g/dL (6.6-8.7) L Albumin 2.0 g/dL (3.5-5.2) L Globulin 1.6 g/dL Albumin/Globulin Ratio 1.2 (1.0-2.7) Amylase Level 56 U/L (10-110) Lipase 14 U/L (< 60) Carcinoembryonic Antigen 3.9 ng/mL H CA 19-9 Antigen 5.27 U/mL (< 37) Random Amikacin Level 7.4 ug/mL Plan Problems: (1) Abdominal mass Assessment & Plan: 86F multiple medical comorbidities found to have abnormal abdominal mass on CT with 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 Spoke with family at bedside about findings. Offered biopsy vs surgery vs no intervention. Patient and family expressed that quality of life is more important and given current state would not benefit from heroic surgical intervention. They would like to her be comfortable and rest until her time comes. Will respect family and patients wishes. No acute surgical intervention planned. Julien Truong September 05, 2016 11:40
[2016-09-05 12:00] VITALS: BP 106/53
--- NOTE | 2016-09-05 12:06 | Pulmonology Progress Note ---
Assessment/Plan Problems: (1) C. difficile colitis (2) Hemorrhagic shock (3) Abdominal mass (4) Dementia (5) Seizure disorder (6) Hypothyroidism (7) HTN (hypertension) (8) Lower GI bleed Assessment/Plan VS more stable start on Flagy and Vanco po Echo and doppler of carotid artery noted d/w daughter about different options about the abdominal mass. they declining biopsy ( i would agree with them) Med/surg check wbc in am Subjective ROS Limited/Unobtainable: No Interval Events: looks much better, talks and understands Allergies: Coded Allergies: CODEINE (Verified Allergy, Unknown, 09/04/16) Objective Last 24 Hour Vital Signs Date Time Temp Pulse Resp B/P Pulse Ox O2 Delivery O2 Flow Rate FiO2 09/05/16 08:00 87 09/05/16 08:00 97.7 87 19 100/60 99 Nasal Cannula 3.0 09/05/16 04:00 91 09/05/16 04:00 98.2 94 20 112/66 91 Nasal Cannula 3.0 09/05/16 00:00 94 09/05/16 00:00 98.6 91 20 128/109 97 Nasal Cannula 3.0 09/04/16 20:00 93 09/04/16 15:54 85 09/04/16 15:52 98.0 88 22 95/61 97 Nasal Cannula 3.0 09/04/16 13:41 97.0 78 20 91/57 95 Nasal Cannula 2.0 09/04/16 12:54 95/47 09/04/16 12:19 91/57 09/04/16 12:06 81 Intake and Output 09/04/16 09/05/16 19:00 07:00 Intake Total 4734.000 ml 1127.0 ml Balance 4734.000 ml 1127.0 ml Intake Oral 50 ml IV Total 4734.000 ml 1077.0 ml # Voids 3 3 # Bowel Movements 5 General Appearance: cachetic HEENT: normocephalic, atraumatic Respiratory/Chest: chest wall non-tender, lungs clear Cardiovascular: normal peripheral pulses, normal rate Abdomen: normal bowel sounds, soft, non tender Extremities: no cyanosis Skin: no rash, no ulcers Neurologic/Psychiatric: abnormal gait, oriented x 3, normal mood/affect Lymphatic: no neck adenopathy Microbiology Date/Time Source Procedure Growth Status 09/04/16 02:40 Blood Blood Culture - Preliminary NO GROWTH AFTER 24 HOURS Resulted 09/04/16 02:40 Blood Blood Culture - Preliminary NO GROWTH AFTER 24 HOURS Resulted 09/04/16 11:50 Stool Clostridium difficile Toxin Assay - Final Complete 09/04/16 14:00 Indwelling Cath Urine Culture - Preliminary NO GROWTH Resulted Laboratory Tests 09/05/16 01:00: White Blood Count 23.9*H, Red Blood Count 4.83, Hemoglobin 11.6L, Hematocrit 36.1L, Mean Corpuscular Volume 75L, Mean Corpuscular Hemoglobin 24.1L, Mean Corpuscular Hemoglobin Concent 32.2, Red Cell Distribution Width 20.4H, Platelet Count 301, Mean Platelet Volume 5.7L, Neutrophils (%) (Auto) , Lymphocytes (%) (Auto) , Monocytes (%) (Auto) , Eosinophils (%) (Auto) , Basophils (%) (Auto) , Differential Total Cells Counted 100, Neutrophils % ( Manual) 88H, Lymphocytes % (Manual) 2L, Monocytes % (Manual) 5, Eosinophils % ( Manual) 2, Basophils % (Manual) 0, Band Neutrophils 3, Platelet Estimate Adequate, Platelet Morphology Normal, Poikilocytosis 1+, Anisocytosis 1+, Ovalocytes 2+, Prothrombin Time 10.1, Prothromb Time International Ratio 1.0, Activated Partial Thromboplast Time 27, Sodium Level 133L, Potassium Level 3.6, Chloride Level 98, Carbon Dioxide Level 23, Anion Gap 12, Blood Urea Nitrogen 28H, Creatinine 0.6, Estimat Glomerular Filtration Rate , Glucose Level 104, Calcium Level 8.2L, Total Bilirubin < 0.2, Aspartate Amino Transf (AST/SGOT) 30 , Alanine Aminotransferase (ALT/SGPT) 56H, Alkaline Phosphatase 63, Total Protein 3.6L, Albumin 2.0L, Globulin 1.6, Albumin/Globulin Ratio 1.2, Amylase Level 56, Lipase 14, Carcinoembryonic Antigen 3.9H, CA 19-9 Antigen 5.27, Random Amikacin Level 7.4 Current Medications Medications (Trade) Dose Ordered Sig/Porfirio Route PRN Reason Start Time Stop Time Status Last Admin Dose Admin Acetaminophen (Tylenol) 650 mg Q4H PRN ORAL fever>100.5 09/04/16 14:00 10/04/16 13:59 Al Hydroxide/Mg Hydroxide (Mylanta II) 30 ml Q6H PRN ORAL dyspepsia 09/04/16 14:00 10/04/16 13:59 Dextrose (Dextrose 50%) STAT PRN IV Hypoglycemia 09/04/16 14:00 10/04/16 13:59 Dextrose/Sodium Chloride 1,000 ml @ 75 mls/hr [id number] IV 09/04/16 14:00 10/04/16 13:59 09/05/16 03:20 Diphenhydramine HCl (Benadryl) 25 mg Q6H PRN ORAL Itching/Pruritis 09/04/16 14:00 10/04/16 13:59 Levothyroxine Sodium (Synthroid) 112 mcg ACBREAKFAST ORAL 09/05/16 06:30 10/05/16 06:29 09/05/16 06:21 Losartan Potassium (Cozaar) 100 mg DAILYPRN PRN ORAL sbp>160 09/04/16 14:00 10/04/16 13:59 Metronidazole (Flagyl) 100 ml @ 100 mls/hr Q8HR IVPB 09/05/16 14:00 09/12/16 13:59 Nitroglycerin (Ntg) 0.4 mg Q5M X 3 DOSES PRN SL Prn Chest Pain 09/04/16 13:45 10/04/16 13:44 Ondansetron HCl (Zofran) 4 mg Q6H PRN IVP Nausea & Vomiting 09/04/16 14:00 10/04/16 13:59 Phenytoin (Dilantin) 100 mg EVERY 8 HOURS ORAL 09/04/16 14:00 10/04/16 13:59 09/05/16 06:22 Piperacillin Sod/ Tazobactam Sod 3.375 gm/Sodium Chloride 110 ml @ 27.5 mls/hr Q8HR@0730,1530,2330 IVPB 09/04/16 15:30 09/11/16 15:29 09/05/16 08:37 Polyethylene Glycol (Miralax) 17 gm HSPRN PRN ORAL Constipation 09/04/16 21:00 10/04/16 20:59 Temazepam (Restoril) 15 mg HSPRN PRN ORAL Insomnia 09/04/16 21:00 09/11/16 20:59 Vancomycin HCl (Vancomycin) 125 mg FOUR TIMES A DAY ORAL 09/05/16 13:00 09/12/16 12:59 Vancomycin HCl 1 ea 1 ea DAILY PRN MISC Per rx protocol 09/04/16 14:00 10/04/16 13:59 Vancomycin HCl/ Dextrose (Vancomycin/D5W) 275 ml @ 183.708 mls/hr Q48H IVPB 09/04/16 14:00 09/09/16 13:59 09/04/16 15:12 BARBARA ANDRES September 05, 2016 12:06
[2016-09-05] MEDS: Vancomycin oral 125mg/2.5ml ORAL SCH ×3 (13:34→22:20)
[2016-09-05] MEDS: metroNIDAZOLE 500mg 100 ML IVPB SCH ×3 (13:34→22:00)
[2016-09-05 16:00] VITALS: BP 115/55
--- NOTE | 2016-09-05 16:31 | Consultation ---
DATE OF CONSULTATION: 09/04/2016 SURGICAL CONSULTATION. CONSULTING PHYSICIAN: Seamus Swanson M.D. ATTENDING PHYSICIAN: Dixon Villaseñor M.D. PERTINENT HISTORY: The patient is an 86-year-old female, who was admitted to the emergency room this morning with reports of the patient having had bloody diarrhea and abdominal pain. I was called to see her for evaluation after a CAT scan of the abdomen revealed a large left retroperitoneal mass with some impingement upon the ureter causing slight hydroureter. I have no other history to know why the patient is quite lethargic and is unable to give any history. PAST MEDICAL HISTORY: She lives at home with one of her daughter, I could not reach either one of the daughters on the chart and that she had this episode of bloody diarrhea on several occasions, and was quite weak and lethargic therefore she was brought in by paramedics. There is no other past history that I know off. MEDICATIONS: See chart. ALLERGIES: None known. REVIEW OF SYSTEMS: Unobtainable. PHYSICAL EXAMINATION: VITAL SIGNS: Blood pressure 118/78, pulse 84 and regular, respirations of 16 unlabored, temperature is 98.2. GENERAL: The patient is a well developed, chronically ill appearing, and very lethargic female trying to give answers but unable to do so because of her overall illness. HEENT: She is somewhat pale. Mucosa for dehydrated. The mouth and throat are clear. NECK: Supple. LUNGS: Clear. BREASTS: She has had bilateral mastectomies for some unbeknownst reason with implants, right one is collapsed and left one was intact. There is no obvious mass or adenopathy on the axilla. ABDOMEN: Soft and flat. Bowel sounds are normoactive. There is minimal distention. There is no obvious palpable mass in the left side but she guards a little and there is an old well-healed, low midline scar. No groin adenopathy or hernia. GENITALIA: Normal external female genitalia. PELVIC: Deferred. RECTAL: Deferred. LABORATORY VALUES: White blood count is normal. Hemoglobin is 11 and hematocrit is 35. Electrolytes are normal. Liver function tests are pending. CAT scan of the abdomen was reviewed with and there is a large inhomogeneous left retroperitoneal mass impinging a little bit on the left ureter with mild hydroureter, there is some enhancement of the distal transverse colon to suggest possible colitis which would cause bloody diarrhea and there are some diverticuli but no diverticulitis. IMPRESSION: 1. History of recent bloody diarrhea with dehydration, cause undetermined. It be could be diverticular bleed, small tumor, or polyp. She could also have telangiectasia of the large bowel. 2. 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 I failed to mention that she had significant bilateral ankle edema suggesting severe hypoproteinemia and/or an obstructive pattern from the left retroperitoneal mass. At this point, we are awaiting a decision making by the family who is not available at this time on telephone and given her overall condition it is unlikely we will be able to operate this very frail elderly lady. If we were to operate, however, it would be large operation which we hope she could tolerate. She would need some cardiac evaluation for that. Seamus Swanson M.D. DR: NANNETTE/leighton JOB#: [id number] CC:
[2016-09-05 20:00] VITALS: BP 98/59
[2016-09-05] MEDS ORDERED: Nitroglycerin Subl 0.4mg tab (Bottle Of 25) SL PRN (20:15)
[2016-09-05] MEDS ORDERED: Losartan 50mg tab ORAL PRN (21:00)
[2016-09-05] MEDS ORDERED: Miralax 17gm pkt ORAL PRN (21:00)
[2016-09-05] MEDS ORDERED: Mylanta II UD 30ml ORAL PRN (21:00)
[2016-09-06] VITALS (17 sets, daily range): BP systolic 97–115; BP diastolic 54–74
[2016-09-06] MEDS ORDERED: Amikacin 500 MG in NS 110 ML IV SCH (01:00)
[2016-09-06] MEDS: metroNIDAZOLE 500mg 100 ML IVPB SCH ×3 (06:00→21:39)
[2016-09-06] MEDS: Phenytoin 100mg cap ORAL SCH ×3 (06:30→21:40)
--- NOTE | 2016-09-06 07:20 | General Surgery Progress Note ---
General Surgery-Progress Note Subjective Additional Comments patient seen and examined at bedside. no acute events. resting comfortable. no family available at bedside this AM. She is responsive and smiles. Objective Last 24 Hour Vital Signs Date Time Temp Pulse Resp B/P Pulse Ox O2 Delivery O2 Flow Rate FiO2 09/06/16 04:00 97.8 81 20 106/68 100 Nasal Cannula 3.0 09/06/16 00:00 97.6 82 21 102/54 99 Nasal Cannula 3.0 09/05/16 20:00 98.1 88 18 98/59 100 Nasal Cannula 3.0 09/05/16 16:00 88 09/05/16 16:00 98.0 83 20 115/55 97 Nasal Cannula 3.0 09/05/16 12:00 88 09/05/16 12:00 98.8 87 20 106/53 97 Nasal Cannula 3.0 09/05/16 08:00 87 09/05/16 08:00 97.7 87 19 100/60 99 Nasal Cannula 3.0 I&O Intake and Output 09/05/16 09/06/16 19:00 07:00 Intake Total 505.0 ml 30 ml Balance 505.0 ml 30 ml Intake Oral 20 ml 30 ml IV Total 485.0 ml # Voids 3 # Bowel Movements 1 Cardiovascular: RSR Respiratory: clear Abdomen: soft, non-tender, present bowel sounds Extremities: edema, no tenderness, no cyanosis Plan Problems: (1) Abdominal mass Assessment & Plan: 86F multiple medical comorbidities found to have abnormal abdominal mass on CT with 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 Patient and family express that quality of life is more important and given current state would not benefit from heroic surgical intervention. They would like to her be comfortable and rest until her time comes. Will respect family and patients wishes. They decline biopsy at this time which is reasonable. No acute surgical intervention planned will be available if change in plan or condition thank you for this consultation Julien Truong September 06, 2016 07:20
[2016-09-06] MEDS: Piperacillin/Tazobactam 3.375 GM in NS 110 ML IVPB SCH ×3 (07:30→22:53)
[2016-09-06] MEDS: Vancomycin oral 125mg/2.5ml ORAL SCH ×4 (08:41→20:59)
[2016-09-06] MEDS ORDERED: Heparin 2000 units/Ns 1000ml INJ ONE (09:00)
[2016-09-06] MEDS ORDERED: Sodium Bicarbonate 4% 2.4meq/5ml vial INJ ONE (09:00)
[2016-09-06] MEDS: Dyna-Hex 2% Top Sol 8oz TOPIC SCH (09:00)
[2016-09-06] MEDS ORDERED: Lidocaine 1% Plain 30 ml INJ ONE (09:00)
[2016-09-06] MEDS: D5NS 1,000 ML IV SCH ×2 (10:20→22:53)
--- NOTE | 2016-09-06 11:33 | GI Progress Note ---
Assessment/Plan Problems: (1) LFT elevation ICD Codes: R94.5 - Abnormal results of liver function studies SNOMED: 872406489 (2) Hemorrhagic shock SNOMED: 650399 (3) Diarrhea ICD Codes: R19.7 - Diarrhea, unspecified SNOMED: 34439559 (4) Abdominal mass ICD Codes: R19.00 - Intra-abdominal and pelvic swelling, mass and lump, unspecified site SNOMED: 920964785 Qualifiers: Qualified Codes: R19.00 - Intra-abdominal and pelvic swelling, mass and lump , unspecified site (5) Dementia ICD Codes: F03.90 - Unspecified dementia without behavioral disturbance SNOMED: 51545924 (6) Seizure disorder ICD Codes: G40.909 - Epilepsy, unspecified, not intractable, without status epilepticus SNOMED: 083889677 (7) Lower GI bleed ICD Codes: K92.2 - Gastrointestinal hemorrhage, unspecified SNOMED: 83982886 (8) Hypothyroidism ICD Codes: E03.9 - Hypothyroidism, unspecified SNOMED: 50367602 (9) Severe malnutrition ICD Codes: E43 - Unspecified severe protein-calorie malnutrition SNOMED: 80830934 Status: doing well, unchanged Status Narrative Discussed with Dr. Ramirez. 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 CA 125 elevation >> 77.9 CEA elevation >> 3.9 CA19-9 >> unremarkable OB stool positive cdiff positive >> flagyl surgical recs noted >> family declined surgery Dr. Ramirez had spoken to the PCP Dr. Ford and they have agreed to continue with the CT guided biopsy. defer GI procedures at this time monitor H&H, transfuse prn H2B abx fu labs Subjective Subjective limited Objective Last 24 Hour Vital Signs Date Time Temp Pulse Resp B/P Pulse Ox O2 Delivery O2 Flow Rate FiO2 09/06/16 08:18 98.0 80 18 101/58 96 Nasal Cannula 2.0 09/06/16 04:00 97.8 81 20 106/68 100 Nasal Cannula 3.0 09/06/16 00:00 97.6 82 21 102/54 99 Nasal Cannula 3.0 09/05/16 20:00 98.1 88 18 98/59 100 Nasal Cannula 3.0 5/24/17 16:00 88 09/05/16 16:00 98.0 83 20 115/55 97 Nasal Cannula 3.0 09/05/16 12:00 88 09/05/16 12:00 98.8 87 20 106/53 97 Nasal Cannula 3.0 Intake and Output 09/05/16 09/06/16 19:00 07:00 Intake Total 505.0 ml 30 ml Balance 505.0 ml 30 ml Intake Oral 20 ml 30 ml IV Total 485.0 ml # Voids 3 # Bowel Movements 1 Height (Feet): 4 Height (Inches): 11.00 Weight (Pounds): 90 General Appearance: no apparent distress, alert Cardiovascular: normal rate Respiratory/Chest: normal breath sounds, no respiratory distress Abdominal Exam: normal bowel sounds, non tender, soft Celeste Bull N.P. September 06, 2016 11:33
--- NOTE | 2016-09-06 11:37 | Diagnostic Imaging Report ---
APPROVED REPORT CPT Code: 62820 Present Symptoms Comments: Swelling BILATERAL: Imaging reveals a patent deep venous system bilaterally. There is no evidence of thrombus within the femoral, popliteal or tibial segments. The greater saphenous veins are also within normal limits. Doppler indicates normal spontaneous flow within these segments.
--- NOTE | 2016-09-06 11:37 | Diagnostic Imaging Report ---
APPROVED REPORT CPT Code: 02302 Symptoms Comments: Swelling BILATERAL: Common femoral artery waveform analysis is within normal limits at rest. Color flow duplex sonography reveals minimal calcification throughout the superficial femoral, and popliteal arteries. There is no evidence of stenosis or occlusion within these segments. The tibioperoneal trunks were patent. The posterior tibial, anterior tibial and dorsalis pedis arteries are also patent. Doppler tibial artery waveform analysis is within normal limits, bilaterally. There is no evidence of significant arterial occlusive disease, bilaterally.
[2016-09-06] MEDS ORDERED: Vancomycin 1 GM in D5W 275 ML IVPB SCH (14:00)
--- NOTE | 2016-09-06 16:26 | Diagnostic Imaging Report ---
Indications: Central venous access required for intravenous therapy Technique: Procedure, indications, risks and alternatives were explained to the patient, who understands and gives consent to proceed. Strict aseptic technique was utilized, including hand washing, use of hat and mask, use of sterile gown and gloves, sterile ultrasound gel and probe cover, prepping of right neck base skin with 2% chlorhexidine solution, and application of whole-body sterile barrier over this area. Skin and subcutaneous soft tissues were infiltrated with 1% lidocaine and sodium bicarbonate. A small dermatotomy was made, through which the right internal jugular vein was punctured percutaneously under direct sonographic guidance with a 5 English micropuncture set. The percutaneous tract was dilated over a guidewire, then a 7 English triple-lumen central venous catheter advanced over the guidewire under direct fluoroscopic guidance into the superior vena cava. Guidewire was removed. All catheter ports were aspirated, then flushed with heparinized saline. Final spot film image was obtained. Catheter was secured to the skin with suture and adhesive dressing. The patient tolerated the procedure well without immediate complications. Total fluoroscopy time: 1.4 minutes. Dose-area product: 221 dGy-cm2 Findings: Final image demonstrates tip of the central venous catheter at the level of the SVC-right atrial junction. Both all catheter ports aspirate and flush freely. IMPRESSION: Placement of triple-lumen central venous dialysis catheter via right internal jugular vein, working well.
--- NOTE | 2016-09-06 17:13 | Diagnostic Imaging Report ---
Indications:Large abdominopelvic mass suspicious for neoplasm Technique: Procedure, indications, risks, and alternatives were explained to the patient, who understands and gives written consent proceed. The lower abdomen and pelvis were surveyed sonographically. The skin overlying the left hepatic lobe was sterilely prepped and draped in the usual fashion. There are intra-abdominal wall skin and subcutaneous soft tissues to the superficial mass margin were infiltrated extensively with 1% lidocaine with sodium bicarbonate and epinephrine. A small dermatotomy was made, through which a 17-gauge guiding trocar was advanced under direct sonographic guidance into the superficial aspect of the mass. An 18-gauge Achieve automated biopsy needle was advanced coaxially through the trocar and under direct sonographic guidance fired into the mass. The needle was removed, core biopsy specimen obtained and placed in formalin solution. 5 such passes were made. The guiding trocar was removed. Dermatotomy site was manually compressed to achieve hemostasis, then cleansed and bandaged. Final echographic image was obtained. The patient tolerated the procedure well without immediate complications and was returned to same day surgery in stable condition for several hours observation prior to discharge. Biopsy specimens were sent to pathology for analysis. Findings: Intraprocedural imaging demonstrates core biopsy needle within the lower abdominopelvic mass on each pass. Post procedure imaging demonstrates no evidence of hematoma formation or other acute abnormality. IMPRESSION: Ultrasound guided percutaneous core biopsy of the large mass in the lower abdomen/pelvis, pathology results pending.
[2016-09-06] MEDS ORDERED: D5NS 1000ml IV ONE (17:35)
--- NOTE | 2016-09-06 21:13 | Pulmonology Progress Note ---
Assessment/Plan Problems: (1) C. difficile colitis (2) Hemorrhagic shock (3) Abdominal mass (4) Dementia (5) Seizure disorder (6) Hypothyroidism (7) HTN (hypertension) (8) Lower GI bleed Assessment/Plan VS more stable on Flagy and Vanco po wbc decreasing Echo and doppler of carotid artery noted Med/surg check wbc in am ID evaluation pending US guided biopsy done Subjective ROS Limited/Unobtainable: No Interval Events: awake, comfortable Allergies: Coded Allergies: CODEINE (Verified Allergy, Unknown, 09/04/16) Objective Last 24 Hour Vital Signs Date Time Temp Pulse Resp B/P Pulse Ox O2 Delivery O2 Flow Rate FiO2 09/06/16 20:30 98.0 87 18 96 Nasal Cannula 09/06/16 15:20 83 23 109/67 99 Nasal Cannula 3.0 09/06/16 15:18 85 17 3.0 09/06/16 15:15 85 23 115/74 96 Nasal Cannula 3.0 09/06/16 15:10 85 23 104/62 100 Nasal Cannula 3.0 09/06/16 15:05 84 23 106/66 100 Nasal Cannula 3.0 09/06/16 15:00 85 21 104/65 100 Nasal Cannula 3.0 09/06/16 14:55 84 20 105/67 100 Nasal Cannula 3.0 09/06/16 14:50 85 14 108/68 100 Nasal Cannula 3.0 09/06/16 14:45 84 19 103/64 100 Nasal Cannula 3.0 09/06/16 14:44 85 18 3.0 09/06/16 14:40 84 19 100/64 98 Nasal Cannula 3.0 09/06/16 14:35 84 21 97/63 93 Nasal Cannula 3.0 09/06/16 14:30 84 19 99/62 91 Room Air 09/06/16 12:09 97.8 85 18 112/60 96 Nasal Cannula 2.0 09/06/16 08:18 98.0 80 18 101/58 96 Nasal Cannula 2.0 09/06/16 04:00 97.8 81 20 106/68 100 Nasal Cannula 3.0 09/06/16 00:00 97.6 82 21 102/54 99 Nasal Cannula 3.0 Intake and Output 09/05/16 09/06/16 19:00 07:00 Intake Total 505.0 ml 30 ml Balance 505.0 ml 30 ml Intake Oral 20 ml 30 ml IV Total 485.0 ml # Voids 3 # Bowel Movements 1 General Appearance: cachetic HEENT: normocephalic, atraumatic Respiratory/Chest: chest wall non-tender, lungs clear Cardiovascular: normal peripheral pulses, normal rate Abdomen: normal bowel sounds, soft, non tender, no scars Extremities: no cyanosis Microbiology Date/Time Source Procedure Growth Status 09/04/16 02:40 Blood Blood Culture - Preliminary NO GROWTH AFTER 48 HOURS Resulted 09/04/16 02:40 Blood Blood Culture - Preliminary NO GROWTH AFTER 48 HOURS Resulted 09/04/16 11:50 Stool Clostridium difficile Toxin Assay - Final Complete 09/04/16 14:00 Indwelling Cath Urine Culture - Preliminary Mixed Gram Positive Organism Resulted Current Medications Medications (Trade) Dose Ordered Sig/Porfirio Route PRN Reason Start Time Stop Time Status Last Admin Dose Admin Acetaminophen (Tylenol) 650 mg Q4H PRN ORAL fever>100.5 09/05/16 21:00 10/05/16 20:59 Al Hydroxide/Mg Hydroxide (Mylanta II) 30 ml Q6H PRN ORAL dyspepsia 09/05/16 21:00 10/05/16 20:59 Chlorhexidine Gluconate (Rajni-Hex 2%) 1 applic DAILY TOPIC 09/06/16 09:00 10/06/16 08:59 Dextrose/Sodium Chloride 1,000 ml @ 75 mls/hr [id number] IV 09/05/16 21:00 10/05/16 20:59 Diphenhydramine HCl (Benadryl) 25 mg Q6H PRN ORAL Itching/Pruritis 09/05/16 21:00 10/05/16 20:59 Levothyroxine Sodium (Synthroid) 112 mcg ACBREAKFAST ORAL 09/06/16 06:30 10/06/16 06:29 09/06/16 06:30 Losartan Potassium (Cozaar) 100 mg DAILYPRN PRN ORAL sbp>160 09/05/16 21:00 10/05/16 20:59 Metronidazole 100 ml @ 100 mls/hr Q8HR IVPB 09/05/16 22:00 09/12/16 21:59 Nitroglycerin (Ntg) 0.4 mg Q5M X 3 DOSES PRN SL Prn Chest Pain 09/05/16 20:15 10/05/16 20:14 Ondansetron HCl (Zofran) 4 mg Q6H PRN IVP Nausea & Vomiting 09/05/16 21:00 10/05/16 20:59 Phenytoin (Dilantin) 100 mg EVERY 8 HOURS ORAL 09/05/16 22:00 10/05/16 21:59 09/06/16 06:30 Piperacillin Sod/ Tazobactam Sod 3.375 gm/Sodium Chloride 110 ml @ 27.5 mls/hr Q8HR@0730,1530,2330 IVPB 09/05/16 23:30 09/12/16 23:29 09/06/16 17:29 Polyethylene Glycol (Miralax) 17 gm HSPRN PRN ORAL Constipation 09/05/16 21:00 10/05/16 20:59 Temazepam (Restoril) 15 mg HSPRN PRN ORAL Insomnia 09/05/16 21:00 09/12/16 20:59 Vancomycin HCl (Vanco rx to dose) 1 ea DAILY PRN MISC Per rx protocol 09/05/16 21:00 10/05/16 20:59 Vancomycin HCl (Vancomycin) 125 mg FOUR TIMES A DAY ORAL 09/05/16 21:00 09/12/16 20:59 09/06/16 20:59 Vancomycin HCl/ Dextrose (Vancomycin/D5W) 275 ml @ 183.708 mls/hr Q48H IVPB 09/06/16 14:00 09/11/16 13:59 BARBARA ANDRES September 06, 2016 21:13
[2016-09-07] VITALS (7 sets, daily range): BP systolic 101–150; BP diastolic 56–101
[2016-09-07] MEDS: metroNIDAZOLE 500mg 100 ML IVPB SCH ×3 (05:08→21:06)
[2016-09-07] MEDS: Phenytoin 100mg cap ORAL SCH ×3 (05:44→21:34)
[2016-09-07] MEDS: Piperacillin/Tazobactam 3.375 GM in NS 110 ML IVPB SCH (06:29)
[2016-09-07 07:08] LABS: ALANINE AMINOTRANSFERASE 22 U/L (3-33); ALBUMIN/GLOBULIN RATIO 0.8 (1.0-2.7); ANION GAP 14 (5-15); ASPARTATE AMINO TRANSFERASE 13 U/L (5-40); CALCIUM 6.9 mg/dL (8.6-10.2); CARBON DIOXIDE 22 mEQ/L (20-30); CHLORIDE 103 mEQ/L (98-107); CREATININE 0.5 mg/dL (0.5-0.9); CRP QUANT 12.8 mg/dL (< 0.5); HEMOLYSIS 0; MAGNESIUM 1.5 mg/dL (1.7-2.5); POTASSIUM 2.9 mEQ/L (3.4-4.9); SODIUM 139 mEQ/L (135-145); TOTAL PROTEIN 3.2 g/dL (6.6-8.7)
[2016-09-07 07:26] LABS: MEAN CORPUSCULAR HEMOGLOBIN 24.5 PG (27.0-31.0); MEAN CORPUSCULAR HGB CONC 32.1 G/DL (32.0-36.0); MEAN CORPUSCULAR VOLUME 76 FL (80-99); MEAN PLATELET VOLUME 6.2 FL (6.5-10.1); PLATELET COUNT 331 K/UL (150-450); RED BLOOD COUNT 4.51 M/UL (4.20-5.40); RED CELL DISTRIBUTION WIDTH 20.9 % (11.6-14.8)
[2016-09-07 07:30] LABS: WHITE BLOOD COUNT 26.4 K/UL (4.8-10.8)
[2016-09-07] MEDS: Dyna-Hex 2% Top Sol 8oz TOPIC SCH (08:12)
[2016-09-07] MEDS: Vancomycin oral 125mg/2.5ml ORAL SCH ×4 (08:13→20:13)
[2016-09-07 09:10] LABS: ERYTHROCYTE SEDIMENTATION RATE 13 MM/HR (0-42)
[2016-09-07 09:26] LABS: BAND NEUTROPHILS % (MANUAL) 1 % (0-8); BASOPHILS % (MANUAL) 0 % (0-2); EOSINOPHILS % (MANUAL) 0 % (0-3); LYMPHOCYTES % (MANUAL) 2 % (20-45); NEUTROPHILS % (MANUAL) 95 % (45-75); PLATELET ESTIMATE ADEQUATE; PLATELET MORPHOLOGY NORMAL; TOTAL CELLS COUNTED 100
[2016-09-07 09:28] LABS: ANISOCYTOSIS 2+; HYPOCHROMASIA 1+; OVALOCYTES 1+
[2016-09-07 09:29] LABS: MICROCYTES 1+
--- NOTE | 2016-09-07 10:30 | General Surgery Progress Note ---
General Surgery-Progress Note Subjective Symptoms: improved Additional Comments patient seen and examined at bedside. no acute events. states that she is currently comfortable. no complaints. H/H stable. Objective Last 24 Hour Vital Signs Date Time Temp Pulse Resp B/P Pulse Ox O2 Delivery O2 Flow Rate FiO2 09/07/16 08:00 97.5 92 20 102/68 95 Room Air 09/07/16 05:14 98.1 82 18 105/56 100 Room Air 09/07/16 04:00 98.8 84 21 150/101 95 Room Air 09/07/16 00:00 97.8 87 18 101/63 95 Room Air 09/06/16 20:30 98.0 87 18 96 Nasal Cannula 09/06/16 15:20 83 23 109/67 99 Nasal Cannula 3.0 09/06/16 15:18 85 17 3.0 09/06/16 15:15 85 23 115/74 96 Nasal Cannula 3.0 09/06/16 15:10 85 23 104/62 100 Nasal Cannula 3.0 09/06/16 15:05 84 23 106/66 100 Nasal Cannula 3.0 09/06/16 15:00 85 21 104/65 100 Nasal Cannula 3.0 09/06/16 14:55 84 20 105/67 100 Nasal Cannula 3.0 09/06/16 14:50 85 14 108/68 100 Nasal Cannula 3.0 09/06/16 14:45 84 19 103/64 100 Nasal Cannula 3.0 09/06/16 14:44 85 18 3.0 09/06/16 14:40 84 19 100/64 98 Nasal Cannula 3.0 09/06/16 14:35 84 21 97/63 93 Nasal Cannula 3.0 09/06/16 14:30 84 19 99/62 91 Room Air 09/06/16 12:09 97.8 85 18 112/60 96 Nasal Cannula 2.0 I&O Intake and Output 09/06/16 09/07/16 19:00 07:00 Intake Total 267.5 ml 252.5 ml Balance 267.5 ml 252.5 ml Intake Oral 240 ml IV Total 27.5 ml 252.5 ml # Voids 3 # Bowel Movements 2 Cardiovascular: RSR Abdomen: soft, non-tender Extremities: edema, no tenderness, no cyanosis Laboratory Tests Test 09/07/16 05:00 White Blood Count 26.4 K/UL (4.8-10.8) *H Red Blood Count 4.51 M/UL (4.20-5.40) Hemoglobin 11.1 G/DL (12.0-16.0) L Hematocrit 34.5 % (37.0-47.0) L Mean Corpuscular Volume 76 FL (80-99) L Mean Corpuscular Hemoglobin 24.5 PG (27.0-31.0) L Mean Corpuscular Hemoglobin Concent 32.1 G/DL (32.0-36.0) Red Cell Distribution Width 20.9 % (11.6-14.8) H Platelet Count 331 K/UL (150-450) Mean Platelet Volume 6.2 FL (6.5-10.1) L Neutrophils (%) (Auto) % (45.0-75.0) Lymphocytes (%) (Auto) % (20.0-45.0) Monocytes (%) (Auto) % (1.0-10.0) Eosinophils (%) (Auto) % (0.0-3.0) Basophils (%) (Auto) % (0.0-2.0) Differential Total Cells Counted 100 Neutrophils % (Manual) 95 % (45-75) H Lymphocytes % (Manual) 2 % (20-45) L Monocytes % (Manual) 2 % (1-10) Eosinophils % (Manual) 0 % (0-3) Basophils % (Manual) 0 % (0-2) Band Neutrophils 1 % (0-8) Platelet Estimate Adequate Platelet Morphology Normal Hypochromasia 1+ Anisocytosis 2+ Microcytosis 1+ Ovalocytes 1+ Erythrocyte Sedimentation Rate 13 MM/HR (0-42) Sodium Level 139 mEQ/L (135-145) Potassium Level 2.9 mEQ/L (3.4-4.9) L Chloride Level 103 mEQ/L (98-107) Carbon Dioxide Level 22 mEQ/L (20-30) Anion Gap 14 (5-15) Blood Urea Nitrogen 19 mg/dL (7-23) Creatinine 0.5 mg/dL (0.5-0.9) Estimat Glomerular Filtration Rate mL/min (>60) Glucose Level 90 mg/dL (74-106) Calcium Level 6.9 mg/dL (8.6-10.2) L Phosphorus Level 2.0 mg/dL (2.5-4.8) L Magnesium Level 1.5 mg/dL (1.7-2.5) L Total Bilirubin < 0.2 mg/dL (0.0-1.2) Aspartate Amino Transf (AST/SGOT) 13 U/L (5-40) Alanine Aminotransferase (ALT/SGPT) 22 U/L (3-33) Alkaline Phosphatase 76 U/L (35-104) C-Reactive Protein, Quantitative 12.8 mg/dL (< 0.5) H Total Protein 3.2 g/dL (6.6-8.7) L Albumin 1.5 g/dL (3.5-5.2) L Globulin 1.7 g/dL Albumin/Globulin Ratio 0.8 (1.0-2.7) L Plan Problems: (1) Abdominal mass Assessment & Plan: 86F multiple medical comorbidities found to have abnormal abdominal mass on CT with 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 Patient and family express that quality of life is more important and given current state would not benefit from heroic surgical intervention. They would like to her be comfortable and rest until her time comes. Will respect family and patients wishes. Patient currently comfortable. No acute surgical intervention planned H/H stable will be available if change in plan or condition thank you for this consultation Julien Truong September 07, 2016 10:30
--- NOTE | 2016-09-07 11:16 | Consultation ---
Consult Note Consult Note ID Dic# [id number] DEENA BELL M.D. September 07, 2016 11:16
[2016-09-07] MEDS: D5NS 1,000 ML IV SCH ×2 (12:20→17:25)
--- NOTE | 2016-09-07 13:22 | GI Progress Note ---
Assessment/Plan Problems: (1) LFT elevation ICD Codes: R94.5 - Abnormal results of liver function studies SNOMED: 492045185 (2) Hemorrhagic shock SNOMED: 772361 (3) Diarrhea ICD Codes: R19.7 - Diarrhea, unspecified SNOMED: 75865307 (4) Abdominal mass ICD Codes: R19.00 - Intra-abdominal and pelvic swelling, mass and lump, unspecified site SNOMED: 924551084 Qualifiers: Qualified Codes: R19.00 - Intra-abdominal and pelvic swelling, mass and lump , unspecified site (5) Dementia ICD Codes: F03.90 - Unspecified dementia without behavioral disturbance SNOMED: 72205711 (6) Seizure disorder ICD Codes: G40.909 - Epilepsy, unspecified, not intractable, without status epilepticus SNOMED: 642868653 (7) Lower GI bleed ICD Codes: K92.2 - Gastrointestinal hemorrhage, unspecified SNOMED: 67271567 (8) Hypothyroidism ICD Codes: E03.9 - Hypothyroidism, unspecified SNOMED: 86327035 (9) Severe malnutrition ICD Codes: E43 - Unspecified severe protein-calorie malnutrition SNOMED: 47954304 Status: stable, unchanged Status Narrative Discussed with Dr. Ramirez. 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 CA 125 elevation >> 77.9 CEA elevation >> 3.9 CA19-9 >> unremarkable OB stool positive cdiff positive >> flagyl surgical recs noted >> family declined surgery Dr. Ramirez had spoken to the PCP Dr. Ford and they have agreed to continue with the biopsy of abdominal mass. defer GI procedures at this time fu biopsy electrolyte replacement monitor H&H, transfuse prn H2B abx fu labs Subjective Gastrointestinal/Abdominal: Reports: no symptoms Objective Last 24 Hour Vital Signs Date Time Temp Pulse Resp B/P Pulse Ox O2 Delivery O2 Flow Rate FiO2 09/07/16 11:57 98.1 86 20 120/64 97 Nasal Cannula 2.0 09/07/16 08:00 97.5 92 20 102/68 95 Room Air 09/07/16 05:14 98.1 82 18 105/56 100 Room Air 09/07/16 04:00 98.8 84 21 150/101 95 Room Air 09/07/16 00:00 97.8 87 18 101/63 95 Room Air 09/06/16 20:30 98.0 87 18 96 Nasal Cannula 09/06/16 15:20 83 23 109/67 99 Nasal Cannula 3.0 09/06/16 15:18 85 17 3.0 09/06/16 15:15 85 23 115/74 96 Nasal Cannula 3.0 09/06/16 15:10 85 23 104/62 100 Nasal Cannula 3.0 09/06/16 15:05 84 23 106/66 100 Nasal Cannula 3.0 09/06/16 15:00 85 21 104/65 100 Nasal Cannula 3.0 09/06/16 14:55 84 20 105/67 100 Nasal Cannula 3.0 09/06/16 14:50 85 14 108/68 100 Nasal Cannula 3.0 09/06/16 14:45 84 19 103/64 100 Nasal Cannula 3.0 09/06/16 14:44 85 18 3.0 09/06/16 14:40 84 19 100/64 98 Nasal Cannula 3.0 09/06/16 14:35 84 21 97/63 93 Nasal Cannula 3.0 09/06/16 14:30 84 19 99/62 91 Room Air Intake and Output 09/06/16 09/07/16 19:00 07:00 Intake Total 267.5 ml 252.5 ml Balance 267.5 ml 252.5 ml Intake Oral 240 ml IV Total 27.5 ml 252.5 ml # Voids 3 # Bowel Movements 2 Laboratory Tests Test 09/07/16 05:00 White Blood Count 26.4 K/UL (4.8-10.8) *H Red Blood Count 4.51 M/UL (4.20-5.40) Hemoglobin 11.1 G/DL (12.0-16.0) L Hematocrit 34.5 % (37.0-47.0) L Mean Corpuscular Volume 76 FL (80-99) L Mean Corpuscular Hemoglobin 24.5 PG (27.0-31.0) L Mean Corpuscular Hemoglobin Concent 32.1 G/DL (32.0-36.0) Red Cell Distribution Width 20.9 % (11.6-14.8) H Platelet Count 331 K/UL (150-450) Mean Platelet Volume 6.2 FL (6.5-10.1) L Neutrophils (%) (Auto) % (45.0-75.0) Lymphocytes (%) (Auto) % (20.0-45.0) Monocytes (%) (Auto) % (1.0-10.0) Eosinophils (%) (Auto) % (0.0-3.0) Basophils (%) (Auto) % (0.0-2.0) Differential Total Cells Counted 100 Neutrophils % (Manual) 95 % (45-75) H Lymphocytes % (Manual) 2 % (20-45) L Monocytes % (Manual) 2 % (1-10) Eosinophils % (Manual) 0 % (0-3) Basophils % (Manual) 0 % (0-2) Band Neutrophils 1 % (0-8) Platelet Estimate Adequate Platelet Morphology Normal Hypochromasia 1+ Anisocytosis 2+ Microcytosis 1+ Ovalocytes 1+ Erythrocyte Sedimentation Rate 13 MM/HR (0-42) Sodium Level 139 mEQ/L (135-145) Potassium Level 2.9 mEQ/L (3.4-4.9) L Chloride Level 103 mEQ/L (98-107) Carbon Dioxide Level 22 mEQ/L (20-30) Anion Gap 14 (5-15) Blood Urea Nitrogen 19 mg/dL (7-23) Creatinine 0.5 mg/dL (0.5-0.9) Estimat Glomerular Filtration Rate mL/min (>60) Glucose Level 90 mg/dL (74-106) Calcium Level 6.9 mg/dL (8.6-10.2) L Phosphorus Level 2.0 mg/dL (2.5-4.8) L Magnesium Level 1.5 mg/dL (1.7-2.5) L Total Bilirubin < 0.2 mg/dL (0.0-1.2) Aspartate Amino Transf (AST/SGOT) 13 U/L (5-40) Alanine Aminotransferase (ALT/SGPT) 22 U/L (3-33) Alkaline Phosphatase 76 U/L (35-104) C-Reactive Protein, Quantitative 12.8 mg/dL (< 0.5) H Total Protein 3.2 g/dL (6.6-8.7) L Albumin 1.5 g/dL (3.5-5.2) L Globulin 1.7 g/dL Albumin/Globulin Ratio 0.8 (1.0-2.7) L Height (Feet): 4 Height (Inches): 11.00 Weight (Pounds): 90 General Appearance: no apparent distress, alert Cardiovascular: normal rate Respiratory/Chest: normal breath sounds, no respiratory distress Abdominal Exam: normal bowel sounds, non tender, soft Celeste Bull N.P. September 07, 2016 13:22
[2016-09-07] MEDS ORDERED: Sodium Phosphate 30 MM in NS 275 ML IVPB ONE (16:00)
--- NOTE | 2016-09-07 16:37 | General Progress Note ---
Assessment/Plan Status: stable Status Narrative sp roger guided biopsy of left retroperitoneal mass Assessment/Plan observation only No need for the intervention at this time Subjective ROS Limited/Unobtainable: Yes Genitourinary: Reports: no symptoms Allergies: Coded Allergies: CODEINE (Verified Allergy, Unknown, 09/04/16) Objective Last 24 Hour Vital Signs Date Time Temp Pulse Resp B/P Pulse Ox O2 Delivery O2 Flow Rate FiO2 09/07/16 16:00 97.9 87 20 127/69 98 Nasal Cannula 2.0 09/07/16 11:57 98.1 86 20 120/64 97 Nasal Cannula 2.0 09/07/16 08:00 97.5 92 20 102/68 95 Room Air 09/07/16 05:14 98.1 82 18 105/56 100 Room Air 09/07/16 04:00 98.8 84 21 150/101 95 Room Air 09/07/16 00:00 97.8 87 18 101/63 95 Room Air 09/06/16 20:30 98.0 87 18 96 Nasal Cannula Intake and Output 09/06/16 09/07/16 19:00 07:00 Intake Total 267.5 ml 252.5 ml Balance 267.5 ml 252.5 ml Intake Oral 240 ml IV Total 27.5 ml 252.5 ml # Voids 3 # Bowel Movements 2 Laboratory Tests 09/07/16 05:00: White Blood Count 26.4*H, Red Blood Count 4.51, Hemoglobin 11.1L, Hematocrit 34.5L, Mean Corpuscular Volume 76L, Mean Corpuscular Hemoglobin 24.5L, Mean Corpuscular Hemoglobin Concent 32.1, Red Cell Distribution Width 20.9H, Platelet Count 331, Mean Platelet Volume 6.2L, Neutrophils (%) (Auto) , Lymphocytes (%) (Auto) , Monocytes (%) (Auto) , Eosinophils (%) (Auto) , Basophils (%) (Auto) , Differential Total Cells Counted 100, Neutrophils % ( Manual) 95H, Lymphocytes % (Manual) 2L, Monocytes % (Manual) 2, Eosinophils % ( Manual) 0, Basophils % (Manual) 0, Band Neutrophils 1, Platelet Estimate Adequate, Platelet Morphology Normal, Hypochromasia 1+, Anisocytosis 2+, Microcytosis 1+, Ovalocytes 1+, Erythrocyte Sedimentation Rate 13, Sodium Level 139, Potassium Level 2.9L, Chloride Level 103, Carbon Dioxide Level 22, Anion Gap 14, Blood Urea Nitrogen 19, Creatinine 0.5, Estimat Glomerular Filtration Rate , Glucose Level 90, Calcium Level 6.9L, Phosphorus Level 2.0L, Magnesium Level 1.5L, Total Bilirubin < 0.2, Aspartate Amino Transf (AST/SGOT) 13, Alanine Aminotransferase (ALT/SGPT) 22, Alkaline Phosphatase 76, C-Reactive Protein, Quantitative 12.8H, Total Protein 3.2L, Albumin 1.5L, Globulin 1.7, Albumin/Globulin Ratio 0.8L Height (Feet): 4 Height (Inches): 11.00 Weight (Pounds): 90 Genitourinary/Rectal: normal genital exam Abdon Valentin MD September 07, 2016 16:37
[2016-09-07] MEDS ORDERED: D5NS 1000ml IV ONE (17:37)
[2016-09-07] MEDS ORDERED: NS 275ml ONE (17:37)
[2016-09-07] MEDS ORDERED: Tubing IV Secondary IV ONE (17:37)
--- NOTE | 2016-09-07 18:53 | Pulmonology Progress Note ---
Assessment/Plan Problems: (1) C. difficile colitis (2) Hemorrhagic shock (3) Abdominal mass (4) Dementia (5) Seizure disorder (6) Hypothyroidism (7) HTN (hypertension) (8) Lower GI bleed Assessment/Plan VS more stable on Flagy and Vanco po wbc decreasing Echo and doppler of carotid artery noted Med/surg check wbc in am ID evaluation appreciated US guided biopsy done, results will be available on Saturday,( saturday is a holiday) Subjective ROS Limited/Unobtainable: No Constitutional: Reports: no symptoms HEENT: Repors: no symptoms Respiratory: Reports: no symptoms Allergies: Coded Allergies: CODEINE (Verified Allergy, Unknown, 09/04/16) Objective Last 24 Hour Vital Signs Date Time Temp Pulse Resp B/P Pulse Ox O2 Delivery O2 Flow Rate FiO2 09/07/16 16:00 97.9 87 20 127/69 98 Nasal Cannula 2.0 09/07/16 11:57 98.1 86 20 120/64 97 Nasal Cannula 2.0 09/07/16 08:00 97.5 92 20 102/68 95 Room Air 09/07/16 05:14 98.1 82 18 105/56 100 Room Air 09/07/16 04:00 98.8 84 21 150/101 95 Room Air 09/07/16 00:00 97.8 87 18 101/63 95 Room Air 09/06/16 20:30 98.0 87 18 96 Nasal Cannula Intake and Output 09/06/16 09/07/16 19:00 07:00 Intake Total 267.5 ml 252.5 ml Balance 267.5 ml 252.5 ml Intake Oral 240 ml IV Total 27.5 ml 252.5 ml # Voids 3 # Bowel Movements 2 General Appearance: cachetic HEENT: normocephalic, atraumatic Respiratory/Chest: chest wall non-tender, lungs clear Abdomen: normal bowel sounds, soft, non tender Genitourinary: normal external genitalia Laboratory Tests 09/07/16 05:00: White Blood Count 26.4*H, Red Blood Count 4.51, Hemoglobin 11.1L, Hematocrit 34.5L, Mean Corpuscular Volume 76L, Mean Corpuscular Hemoglobin 24.5L, Mean Corpuscular Hemoglobin Concent 32.1, Red Cell Distribution Width 20.9H, Platelet Count 331, Mean Platelet Volume 6.2L, Neutrophils (%) (Auto) , Lymphocytes (%) (Auto) , Monocytes (%) (Auto) , Eosinophils (%) (Auto) , Basophils (%) (Auto) , Differential Total Cells Counted 100, Neutrophils % ( Manual) 95H, Lymphocytes % (Manual) 2L, Monocytes % (Manual) 2, Eosinophils % ( Manual) 0, Basophils % (Manual) 0, Band Neutrophils 1, Platelet Estimate Adequate, Platelet Morphology Normal, Hypochromasia 1+, Anisocytosis 2+, Microcytosis 1+, Ovalocytes 1+, Erythrocyte Sedimentation Rate 13, Sodium Level 139, Potassium Level 2.9L, Chloride Level 103, Carbon Dioxide Level 22, Anion Gap 14, Blood Urea Nitrogen 19, Creatinine 0.5, Estimat Glomerular Filtration Rate , Glucose Level 90, Calcium Level 6.9L, Phosphorus Level 2.0L, Magnesium Level 1.5L, Total Bilirubin < 0.2, Aspartate Amino Transf (AST/SGOT) 13, Alanine Aminotransferase (ALT/SGPT) 22, Alkaline Phosphatase 76, C-Reactive Protein, Quantitative 12.8H, Total Protein 3.2L, Albumin 1.5L, Globulin 1.7, Albumin/Globulin Ratio 0.8L Current Medications Medications (Trade) Dose Ordered Sig/Porfirio Route PRN Reason Start Time Stop Time Status Last Admin Dose Admin Acetaminophen (Tylenol) 650 mg Q4H PRN ORAL fever>100.5 09/05/16 21:00 10/05/16 20:59 Al Hydroxide/Mg Hydroxide (Mylanta II) 30 ml Q6H PRN ORAL dyspepsia 09/05/16 21:00 10/05/16 20:59 Chlorhexidine Gluconate 1 applic 1 applic DAILY TOPIC 09/06/16 09:00 10/06/16 08:59 09/07/16 08:12 Dextrose/Sodium Chloride 1,000 ml @ 75 mls/hr [id number] IV 09/05/16 21:00 10/05/16 20:59 09/07/16 17:25 Diphenhydramine HCl (Benadryl) 25 mg Q6H PRN ORAL Itching/Pruritis 09/05/16 21:00 10/05/16 20:59 Levothyroxine Sodium (Synthroid) 112 mcg ACBREAKFAST ORAL 09/06/16 06:30 10/06/16 06:29 09/07/16 05:44 Losartan Potassium (Cozaar) 100 mg DAILYPRN PRN ORAL sbp>160 09/05/16 21:00 10/05/16 20:59 Metronidazole (Flagyl) 100 ml @ 100 mls/hr Q8HR IVPB 09/05/16 22:00 09/12/16 21:59 09/07/16 13:48 Nitroglycerin (Ntg) 0.4 mg Q5M X 3 DOSES PRN SL Prn Chest Pain 09/05/16 20:15 10/05/16 20:14 Ondansetron HCl (Zofran) 4 mg Q6H PRN IVP Nausea & Vomiting 09/05/16 21:00 10/05/16 20:59 Phenytoin (Dilantin) 100 mg EVERY 8 HOURS ORAL 09/05/16 22:00 10/05/16 21:59 09/07/16 15:11 Polyethylene Glycol (Miralax) 17 gm HSPRN PRN ORAL Constipation 09/05/16 21:00 10/05/16 20:59 Sodium Phosphate/ Sodium Chloride (NaPO4/Sodium Chloride) 285 ml @ 47.5 mls/hr ONCE ONCE IVPB 09/07/16 16:00 09/07/16 21:59 09/07/16 16:27 Temazepam (Restoril) 15 mg HSPRN PRN ORAL Insomnia 09/05/16 21:00 09/12/16 20:59 Vancomycin HCl (Vancomycin) 125 mg FOUR TIMES A DAY ORAL 09/05/16 21:00 09/12/16 20:59 09/07/16 17:22 BARBARA ANDRES September 07, 2016 18:53
[2016-09-08] VITALS: BP 115/73
--- NOTE | 2016-09-08 00:16 | Consultation ---
DATE OF CONSULTATION: INFECTIOUS DISEASE CONSULTATION CONSULTING PHYSICIAN: Juan Ruffin M.D. REFERRING PHYSICIAN: Dixon Villaseñor M.D. REASON FOR CONSULTATION: Evaluation of the patient with leukocytosis, diarrhea, C. difficile colitis, antibiotic management. HISTORY OF PRESENT ILLNESS: The patient is an 86-year-old female with multiple medical problems who was admitted to this medical center for diarrhea. CT scan of the abdomen showed no abdominal mass. She also underwent biopsy yesterday. The patient's workup resulted in positive C. difficile and Infectious Disease consultation has been requested for further evaluation of the patient's antibiotic management. PAST MEDICAL HISTORY: 1. Hypertension. 2. Dementia. MEDICATIONS: Zosyn, oral vancomycin and Flagyl. ALLERGIES: Codeine. FAMILY HISTORY: Noncontributory. REVIEW OF SYSTEMS: Limited. The patient is lethargic, however, the patient admitted to have occasional cough and has diarrhea, but could not elaborate more. PHYSICAL EXAMINATION: VITAL SIGNS: Temperature 97.5 degrees, pulse 66, respiratory rate 18 and blood pressure 102/68. HEENT: Mild pale conjunctivae. No icterus. NECK: Supple. CHEST: Coarse breathing sounds. HEART: S1 and S2. ABDOMEN: Soft and mildly distended. EXTREMITIES: No cyanosis. NEUROLOGIC: Lethargic. LABORATORY AND DIAGNOSTIC DATA: White blood cell is 26, hemoglobin 11 and platelets 251,000. Urinalysis unremarkable. BUN 19 and creatinine 0.5. ALT and AST unremarkable. Urine culture mixed organism and C. difficile toxin positive. Blood culture is pending. Chest x-ray showed bilateral pleural effusion and consolidation. CT scan of the abdomen showed a 10 x 7 x 1.5 cm mass in the left psoas muscle, suspicious for malignancy. pleural effusion and left basilar parenchymal atelectasis. ASSESSMENT: 1. Leukocytosis. 2. Diarrhea. 3. Clostridium difficile colitis. 4. Doubt pneumonia at this time. The patient has bilateral pleural effusion and atelectasis. 5. Abdominal mass status post biopsy. 6. Hypertension. 7. Dementia. 8. Seizure disorder. 9. Hyperlipidemia. 10. Hyperthyroidism. PLAN: 1. We will continue the patient on oral vancomycin. 2. Monitor CBC. 3. Monitor BMP. 4. Monitor cultures (blood). 5. We will follow abdominal mass biopsy. 6. We will continue the patient on oral vancomycin, Flagyl. Hold Zosyn. 7. The patient's family at this time refusing any surgical intervention. Thank you, Dr. Villaseñor, for allowing me to participate in the care of this patient. I will follow the patient with you during this hospitalization. Juan Ruffin M.D. DR: CHERYL JOB#: [id number] CC:
[2016-09-08 04:00] VITALS: BP 118/68
[2016-09-08] MEDS: metroNIDAZOLE 500mg 100 ML IVPB SCH ×3 (05:02→22:25)
[2016-09-08] MEDS: Phenytoin 100mg cap ORAL SCH ×3 (05:44→22:26)
[2016-09-08 06:41] LABS: MEAN CORPUSCULAR HEMOGLOBIN 24.7 PG (27.0-31.0); MEAN CORPUSCULAR HGB CONC 32.6 G/DL (32.0-36.0); MEAN CORPUSCULAR VOLUME 76 FL (80-99); MEAN PLATELET VOLUME 5.8 FL (6.5-10.1); PLATELET COUNT 378 K/UL (150-450); RED BLOOD COUNT 4.27 M/UL (4.20-5.40); RED CELL DISTRIBUTION WIDTH 20.9 % (11.6-14.8); WHITE BLOOD COUNT 17.3 K/UL (4.8-10.8)
[2016-09-08 07:31] LABS: ANION GAP 11 (5-15); CALCIUM 6.9 mg/dL (8.6-10.2); CARBON DIOXIDE 22 mEQ/L (20-30); CHLORIDE 107 mEQ/L (98-107); CREATININE 0.5 mg/dL (0.5-0.9); HEMOLYSIS 3; MAGNESIUM 1.8 mg/dL (1.7-2.5); PHOSPHORUS 2.8 mg/dL (2.5-4.8); SODIUM 140 mEQ/L (135-145)
--- NOTE | 2016-09-08 07:47 | General Progress Note ---
Progress Note Progress Note Ptfpollowed for abdomional mass . CT showed mass with central necrosis likely malignant tumor unknown etiology. Patient currently comfortable. She and family have decided against proceeding with surgery Pt comfortable. Eating breakfast. No acute surgical intervention planned Laboratory Tests 09/08/16 05:55: White Blood Count 17.3H, Red Blood Count 4.27, Hemoglobin 10.6L, Hematocrit 32.5L, Mean Corpuscular Volume 76L, Mean Corpuscular Hemoglobin 24.7L, Mean Corpuscular Hemoglobin Concent 32.6, Red Cell Distribution Width 20.9H, Platelet Count 378, Mean Platelet Volume 5.8L, Neutrophils (%) (Auto) , Lymphocytes (%) (Auto) , Monocytes (%) (Auto) , Eosinophils (%) (Auto) , Basophils (%) (Auto) , Neutrophils % (Manual) [Pending], Lymphocytes % (Manual) [Pending], Platelet Estimate [Pending], Platelet Morphology [Pending], Sodium Level 140, Potassium Level 3.0L, Chloride Level 107, Carbon Dioxide Level 22, Anion Gap 11, Blood Urea Nitrogen 17, Creatinine 0.5, Estimat Glomerular Filtration Rate , Glucose Level 117H, Calcium Level 6.9L, Phosphorus Level 2.8, Magnesium Level 1.8 CORTES BERRY September 08, 2016 07:47
[2016-09-08 07:56] LABS: ANISOCYTOSIS 2+; BAND NEUTROPHILS % (MANUAL) 0 % (0-8); BASOPHILS % (MANUAL) 0 % (0-2); EOSINOPHILS % (MANUAL) 1 % (0-3); HYPOCHROMASIA 1+; LYMPHOCYTES % (MANUAL) 8 % (20-45); MICROCYTES 1+; NEUTROPHILS % (MANUAL) 82 % (45-75); PLATELET ESTIMATE ADEQUATE; PLATELET MORPHOLOGY NORMAL; TOTAL CELLS COUNTED 100
[2016-09-08 08:09] VITALS: BP 122/72
[2016-09-08] MEDS: D5NS 1,000 ML IV SCH (09:13)
[2016-09-08] MEDS: Dyna-Hex 2% Top Sol 8oz TOPIC SCH (09:13)
[2016-09-08] MEDS: Vancomycin oral 125mg/2.5ml ORAL SCH ×4 (09:13→20:06)
[2016-09-08 12:00] VITALS: BP 114/68
[2016-09-08] MEDS ORDERED: KCl 10% 40mEq/30ml liquid ORAL ONE (15:00)
[2016-09-08 16:10] VITALS: BP 126/71
--- NOTE | 2016-09-08 18:29 | Infectious Diseases Prog Note ---
Assessment/Plan Assessment/Plan A: The patient is an 86-year-old female w Leukocytosis improving Diarrhea. Clostridium difficile colitis. Doubt pneumonia at this time. The patient has bilateral pleural effusion and atelectasis UCx : mixed GNR ( contaminant ) Abdominal mass status post biopsy Hypertension. Dementia. Seizure disorder. Hyperlipidemia. Hyperthyroidism. PLAN: cont on on oral vancomycin, Flagyl d# 2 Monitor CBC Monitor BMP Monitor cultures (blood) Biopsy :P family at this time refusing any surgical intervention Subjective Constitutional: Denies: anorexia, chills, drenching sweats, fatigue, fever, no symptoms, other Allergies: Coded Allergies: CODEINE (Verified Allergy, Unknown, 09/04/16) Objective Vital Signs Last 24 Hour Vital Signs Date Time Temp Pulse Resp B/P Pulse Ox O2 Delivery O2 Flow Rate FiO2 09/08/16 17:14 Nasal Cannula 2.0 28 09/08/16 17:14 98 Nasal Cannula 2.0 28 09/08/16 16:10 97.3 73 18 126/71 97 Nasal Cannula 2.0 09/08/16 12:00 97.1 71 19 114/68 98 Nasal Cannula 2.0 09/08/16 08:09 98.0 73 20 122/72 95 Room Air 09/08/16 04:00 97.9 76 18 118/68 95 Nasal Cannula 2.0 09/08/16 00:00 97.9 80 18 115/73 100 Nasal Cannula 2.0 09/07/16 20:00 97.9 82 20 122/72 98 Nasal Cannula 2.0 Height (Feet): 4 Height (Inches): 11.00 Weight (Pounds): 90 HEENT: anicteric Respiratory/Chest: no accessory muscle use Cardiovascular: normal rate Abdomen: no mass Laboratory Tests Test 09/08/16 05:55 White Blood Count 17.3 K/UL (4.8-10.8) H Red Blood Count 4.27 M/UL (4.20-5.40) Hemoglobin 10.6 G/DL (12.0-16.0) L Hematocrit 32.5 % (37.0-47.0) L Mean Corpuscular Volume 76 FL (80-99) L Mean Corpuscular Hemoglobin 24.7 PG (27.0-31.0) L Mean Corpuscular Hemoglobin Concent 32.6 G/DL (32.0-36.0) Red Cell Distribution Width 20.9 % (11.6-14.8) H Platelet Count 378 K/UL (150-450) Mean Platelet Volume 5.8 FL (6.5-10.1) L Neutrophils (%) (Auto) % (45.0-75.0) Lymphocytes (%) (Auto) % (20.0-45.0) Monocytes (%) (Auto) % (1.0-10.0) Eosinophils (%) (Auto) % (0.0-3.0) Basophils (%) (Auto) % (0.0-2.0) Differential Total Cells Counted 100 Neutrophils % (Manual) 82 % (45-75) H Lymphocytes % (Manual) 8 % (20-45) L Monocytes % (Manual) 9 % (1-10) Eosinophils % (Manual) 1 % (0-3) Basophils % (Manual) 0 % (0-2) Band Neutrophils 0 % (0-8) Platelet Estimate Adequate Platelet Morphology Normal Hypochromasia 1+ Anisocytosis 2+ Microcytosis 1+ Sodium Level 140 mEQ/L (135-145) Potassium Level 3.0 mEQ/L (3.4-4.9) L Chloride Level 107 mEQ/L (98-107) Carbon Dioxide Level 22 mEQ/L (20-30) Anion Gap 11 (5-15) Blood Urea Nitrogen 17 mg/dL (7-23) Creatinine 0.5 mg/dL (0.5-0.9) Estimat Glomerular Filtration Rate mL/min (>60) Glucose Level 117 mg/dL (74-106) H Calcium Level 6.9 mg/dL (8.6-10.2) L Phosphorus Level 2.8 mg/dL (2.5-4.8) Magnesium Level 1.8 mg/dL (1.7-2.5) Current Medications Medications (Trade) Dose Ordered Sig/Porfirio Route PRN Reason Start Time Stop Time Status Last Admin Dose Admin Acetaminophen (Tylenol) 650 mg Q4H PRN ORAL fever>100.5 09/05/16 21:00 10/05/16 20:59 Al Hydroxide/Mg Hydroxide (Mylanta II) 30 ml Q6H PRN ORAL dyspepsia 09/05/16 21:00 6/23/17 20:59 Chlorhexidine Gluconate (Rajni-Hex 2%) 1 applic DAILY TOPIC 09/06/16 09:00 10/06/16 08:59 09/08/16 09:13 Dextrose/Sodium Chloride 1,000 ml @ 75 mls/hr [id number] IV 09/05/16 21:00 10/05/16 20:59 09/08/16 09:13 Diphenhydramine HCl (Benadryl) 25 mg Q6H PRN ORAL Itching/Pruritis 09/05/16 21:00 10/05/16 20:59 Levothyroxine Sodium (Synthroid) 112 mcg ACBREAKFAST ORAL 09/06/16 06:30 10/06/16 06:29 09/08/16 05:44 Losartan Potassium (Cozaar) 100 mg DAILYPRN PRN ORAL sbp>160 09/05/16 21:00 10/05/16 20:59 Metronidazole (Flagyl) 100 ml @ 100 mls/hr Q8HR IVPB 09/05/16 22:00 09/12/16 21:59 09/08/16 13:39 Nitroglycerin (Ntg) 0.4 mg Q5M X 3 DOSES PRN SL Prn Chest Pain 09/05/16 20:15 10/05/16 20:14 Ondansetron HCl (Zofran) 4 mg Q6H PRN IVP Nausea & Vomiting 09/05/16 21:00 10/05/16 20:59 Phenytoin (Dilantin) 100 mg EVERY 8 HOURS ORAL 09/05/16 22:00 10/05/16 21:59 09/08/16 13:14 Polyethylene Glycol (Miralax) 17 gm HSPRN PRN ORAL Constipation 09/05/16 21:00 10/05/16 20:59 Temazepam (Restoril) 15 mg HSPRN PRN ORAL Insomnia 09/05/16 21:00 09/12/16 20:59 Vancomycin HCl (Vancomycin) 125 mg FOUR TIMES A DAY ORAL 09/05/16 21:00 09/12/16 20:59 09/08/16 17:23 DEENA BELL M.D. September 08, 2016 18:29
--- NOTE | 2016-09-08 18:32 | Pulmonology Progress Note ---
Assessment/Plan Problems: (1) C. difficile colitis (2) Hemorrhagic shock (3) Abdominal mass (4) Dementia (5) Seizure disorder (6) Hypothyroidism (7) HTN (hypertension) (8) Lower GI bleed Assessment/Plan VS more stable wbc decreasing finally on Flagy and Vanco po Echo and doppler of carotid artery noted check wbc in am ID evaluation appreciated US guided biopsy done, results will be available on Saturday,( Saturday is a holiday) Subjective ROS Limited/Unobtainable: No Constitutional: Reports: no symptoms HEENT: Repors: no symptoms Respiratory: Reports: no symptoms Allergies: Coded Allergies: CODEINE (Verified Allergy, Unknown, 09/04/16) Objective Last 24 Hour Vital Signs Date Time Temp Pulse Resp B/P Pulse Ox O2 Delivery O2 Flow Rate FiO2 09/08/16 17:14 Nasal Cannula 2.0 28 09/08/16 17:14 98 Nasal Cannula 2.0 28 09/08/16 16:10 97.3 73 18 126/71 97 Nasal Cannula 2.0 09/08/16 12:00 97.1 71 19 114/68 98 Nasal Cannula 2.0 09/08/16 08:09 98.0 73 20 122/72 95 Room Air 09/08/16 04:00 97.9 76 18 118/68 95 Nasal Cannula 2.0 09/08/16 00:00 97.9 80 18 115/73 100 Nasal Cannula 2.0 09/07/16 20:00 97.9 82 20 122/72 98 Nasal Cannula 2.0 Intake and Output 09/07/16 09/08/16 19:00 07:00 Intake Total 1252.5 ml 750 ml Balance 1252.5 ml 750 ml Intake Oral 360 ml IV Total 892.5 ml 750 ml # Voids 1 1 # Bowel Movements 2 1 General Appearance: cachetic HEENT: normocephalic, atraumatic Respiratory/Chest: chest wall non-tender, lungs clear Cardiovascular: normal peripheral pulses, regular rhythm Abdomen: normal bowel sounds, soft, non tender Genitourinary: normal external genitalia Skin: no rash 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 Lymphatic: no neck adenopathy Laboratory Tests 09/08/16 05:55: White Blood Count 17.3H, Red Blood Count 4.27, Hemoglobin 10.6L, Hematocrit 32.5L, Mean Corpuscular Volume 76L, Mean Corpuscular Hemoglobin 24.7L, Mean Corpuscular Hemoglobin Concent 32.6, Red Cell Distribution Width 20.9H, Platelet Count 378, Mean Platelet Volume 5.8L, Neutrophils (%) (Auto) , Lymphocytes (%) (Auto) , Monocytes (%) (Auto) , Eosinophils (%) (Auto) , Basophils (%) (Auto) , Differential Total Cells Counted 100, Neutrophils % ( Manual) 82H, Lymphocytes % (Manual) 8L, Monocytes % (Manual) 9, Eosinophils % ( Manual) 1, Basophils % (Manual) 0, Band Neutrophils 0, Platelet Estimate Adequate, Platelet Morphology Normal, Hypochromasia 1+, Anisocytosis 2+, Microcytosis 1+, Sodium Level 140, Potassium Level 3.0L, Chloride Level 107, Carbon Dioxide Level 22, Anion Gap 11, Blood Urea Nitrogen 17, Creatinine 0.5, Estimat Glomerular Filtration Rate , Glucose Level 117H, Calcium Level 6.9L, Phosphorus Level 2.8, Magnesium Level 1.8 Current Medications Medications (Trade) Dose Ordered Sig/Porfirio Route PRN Reason Start Time Stop Time Status Last Admin Dose Admin Acetaminophen (Tylenol) 650 mg Q4H PRN ORAL fever>100.5 09/05/16 21:00 10/05/16 20:59 Al Hydroxide/Mg Hydroxide (Mylanta II) 30 ml Q6H PRN ORAL dyspepsia 09/05/16 21:00 10/05/16 20:59 Chlorhexidine Gluconate (Rajni-Hex 2%) 1 applic DAILY TOPIC 09/06/16 09:00 10/06/16 08:59 09/08/16 09:13 Dextrose/Sodium Chloride 1,000 ml @ 75 mls/hr [id number] IV 09/05/16 21:00 10/05/16 20:59 09/08/16 09:13 Diphenhydramine HCl (Benadryl) 25 mg Q6H PRN ORAL Itching/Pruritis 09/05/16 21:00 10/05/16 20:59 Levothyroxine Sodium (Synthroid) 112 mcg ACBREAKFAST ORAL 09/06/16 06:30 10/06/16 06:29 09/08/16 05:44 Losartan Potassium (Cozaar) 100 mg DAILYPRN PRN ORAL sbp>160 09/05/16 21:00 10/05/16 20:59 Metronidazole (Flagyl) 100 ml @ 100 mls/hr Q8HR IVPB 09/05/16 22:00 09/12/16 21:59 09/08/16 13:39 Nitroglycerin (Ntg) 0.4 mg Q5M X 3 DOSES PRN SL Prn Chest Pain 09/05/16 20:15 10/05/16 20:14 Ondansetron HCl (Zofran) 4 mg Q6H PRN IVP Nausea & Vomiting 09/05/16 21:00 10/05/16 20:59 Phenytoin (Dilantin) 100 mg EVERY 8 HOURS ORAL 09/05/16 22:00 10/05/16 21:59 09/08/16 13:14 Polyethylene Glycol (Miralax) 17 gm HSPRN PRN ORAL Constipation 09/05/16 21:00 10/05/16 20:59 Temazepam (Restoril) 15 mg HSPRN PRN ORAL Insomnia 09/05/16 21:00 09/12/16 20:59 Vancomycin HCl (Vancomycin) 125 mg FOUR TIMES A DAY ORAL 09/05/16 21:00 09/12/16 20:59 09/08/16 17:23 BARBARA ANDRES September 08, 2016 18:32
[2016-09-08 20:00] VITALS: BP 140/80
--- NOTE | 2016-09-08 22:24 | General Progress Note ---
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 CA 125 elevation >> 77.9 CEA elevation >> 3.9 CA19-9 >> unremarkable OB stool positive cdiff positive >> flagyl surgical recs noted >> family declined surgery defer GI procedures at this time fu biopsy electrolyte replacement monitor H&H, transfuse prn H2B abx fu labs Subjective Allergies: Coded Allergies: CODEINE (Verified Allergy, Unknown, 09/04/16) Subjective calm minimally verbal Objective Last 24 Hour Vital Signs Date Time Temp Pulse Resp B/P Pulse Ox O2 Delivery O2 Flow Rate FiO2 09/08/16 20:00 97.0 79 20 140/80 98 Nasal Cannula 2.0 09/08/16 17:14 Nasal Cannula 2.0 28 09/08/16 17:14 98 Nasal Cannula 2.0 28 09/08/16 16:10 97.3 73 18 126/71 97 Nasal Cannula 2.0 09/08/16 12:00 97.1 71 19 114/68 98 Nasal Cannula 2.0 09/08/16 08:09 98.0 73 20 122/72 95 Room Air 09/08/16 04:00 97.9 76 18 118/68 95 Nasal Cannula 2.0 09/08/16 00:00 97.9 80 18 115/73 100 Nasal Cannula 2.0 Intake and Output 09/07/16 09/08/16 19:00 07:00 Intake Total 1252.5 ml 750 ml Balance 1252.5 ml 750 ml Intake Oral 360 ml IV Total 892.5 ml 750 ml # Voids 1 1 # Bowel Movements 2 1 Laboratory Tests 09/08/16 05:55: White Blood Count 17.3H, Red Blood Count 4.27, Hemoglobin 10.6L, Hematocrit 32.5L, Mean Corpuscular Volume 76L, Mean Corpuscular Hemoglobin 24.7L, Mean Corpuscular Hemoglobin Concent 32.6, Red Cell Distribution Width 20.9H, Platelet Count 378, Mean Platelet Volume 5.8L, Neutrophils (%) (Auto) , Lymphocytes (%) (Auto) , Monocytes (%) (Auto) , Eosinophils (%) (Auto) , Basophils (%) (Auto) , Differential Total Cells Counted 100, Neutrophils % ( Manual) 82H, Lymphocytes % (Manual) 8L, Monocytes % (Manual) 9, Eosinophils % ( Manual) 1, Basophils % (Manual) 0, Band Neutrophils 0, Platelet Estimate Adequate, Platelet Morphology Normal, Hypochromasia 1+, Anisocytosis 2+, Microcytosis 1+, Sodium Level 140, Potassium Level 3.0L, Chloride Level 107, Carbon Dioxide Level 22, Anion Gap 11, Blood Urea Nitrogen 17, Creatinine 0.5, Estimat Glomerular Filtration Rate , Glucose Level 117H, Calcium Level 6.9L, Phosphorus Level 2.8, Magnesium Level 1.8 Height (Feet): 4 Height (Inches): 11.00 Weight (Pounds): 90 Objective debilitated elderly woman NCAT supple CTA RRR soft distended tympanitic, No TTP (+) B/L LE edema ANGELINA BEVERLY September 08, 2016 22:24
[2016-09-09] VITALS (7 sets, daily range): BP systolic 129–148; BP diastolic 81–90
[2016-09-09] MEDS: D5NS 1,000 ML IV SCH (04:14)
[2016-09-09] MEDS: metroNIDAZOLE 500mg 100 ML IVPB SCH ×2 (06:27→13:31)
[2016-09-09] MEDS: Phenytoin 100mg cap ORAL SCH ×2 (06:28→13:31)
[2016-09-09 07:37] LABS: BASOPHILS % (AUTO) 0.4 % (0.0-2.0); EOSINOPHILS % (AUTO) 3.2 % (0.0-3.0); LYMPHOCYTES % (AUTO) 6.7 % (20.0-45.0); MEAN CORPUSCULAR HEMOGLOBIN 25.2 PG (27.0-31.0); MEAN CORPUSCULAR HGB CONC 33.1 G/DL (32.0-36.0); MEAN CORPUSCULAR VOLUME 76 FL (80-99); MEAN PLATELET VOLUME 5.4 FL (6.5-10.1); MONOCYTES % (AUTO) 5.6 % (1.0-10.0); NEUTROPHILS % (AUTO) 84.1 % (45.0-75.0); PLATELET COUNT 473 K/UL (150-450); RED BLOOD COUNT 4.64 M/UL (4.20-5.40); RED CELL DISTRIBUTION WIDTH 20.9 % (11.6-14.8); WHITE BLOOD COUNT 16.7 K/UL (4.8-10.8)
[2016-09-09 08:04] LABS: ALANINE AMINOTRANSFERASE 19 U/L (3-33); ANION GAP 13 (5-15); ASPARTATE AMINO TRANSFERASE 9 U/L (5-40); CALCIUM 8.2 mg/dL (8.6-10.2); CARBON DIOXIDE 22 mEQ/L (20-30); CHLORIDE 104 mEQ/L (98-107); CREATININE 0.5 mg/dL (0.5-0.9); HEMOLYSIS 3; POTASSIUM 3.8 mEQ/L (3.4-4.9); SODIUM 139 mEQ/L (135-145); TOTAL PROTEIN 4.1 g/dL (6.6-8.7)
[2016-09-09 08:56] LABS: ERYTHROCYTE SEDIMENTATION RATE 4 MM/HR (0-42)
[2016-09-09] MEDS: Vancomycin oral 125mg/2.5ml ORAL SCH ×4 (09:13→21:30)
[2016-09-09] MEDS: Dyna-Hex 2% Top Sol 8oz TOPIC SCH (09:13)
--- NOTE | 2016-09-09 12:14 | General Progress Note ---
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 Family has decided against surgery. CORTES BERRY September 09, 2016 12:14
--- NOTE | 2016-09-09 12:27 | Infectious Diseases Prog Note ---
Assessment/Plan Assessment/Plan A: C. difficile colitis Abdominal,psoas muscle mass left hydronephrosis GI bleeding Dementia P; Continue PO Vancomycin & Flagyl Subjective ROS Limited/Unobtainable: Yes Allergies: Coded Allergies: CODEINE (Verified Allergy, Unknown, 09/04/16) Objective Vital Signs Last 24 Hour Vital Signs Date Time Temp Pulse Resp B/P Pulse Ox O2 Delivery O2 Flow Rate FiO2 09/09/16 12:10 97.9 90 17 137/90 99 Nasal Cannula 2.0 09/09/16 08:57 97.0 18 148/81 Nasal Cannula 2.0 96 09/09/16 04:00 97.1 92 18 134/81 Nasal Cannula 2.0 09/09/16 00:00 97.6 83 20 144/84 98 Nasal Cannula 09/08/16 20:00 97.0 79 20 140/80 98 Nasal Cannula 2.0 09/08/16 17:14 Nasal Cannula 2.0 28 09/08/16 17:14 98 Nasal Cannula 2.0 28 09/08/16 16:10 97.3 73 18 126/71 97 Nasal Cannula 2.0 Height (Feet): 4 Height (Inches): 11.00 Weight (Pounds): 90 General Appearance: no acute distress HEENT: mucous membranes moist, other - right jugular central line Respiratory/Chest: lungs clear Cardiovascular: normal peripheral pulses Abdomen: soft, non tender Extremities: other - generalized edema Neurologic/Psychiatric: alert, responsive, other - slow to respond Laboratory Tests Test 09/09/16 05:30 White Blood Count 16.7 K/UL (4.8-10.8) H Red Blood Count 4.64 M/UL (4.20-5.40) Hemoglobin 11.7 G/DL (12.0-16.0) L Hematocrit 35.2 % (37.0-47.0) L Mean Corpuscular Volume 76 FL (80-99) L Mean Corpuscular Hemoglobin 25.2 PG (27.0-31.0) L Mean Corpuscular Hemoglobin Concent 33.1 G/DL (32.0-36.0) Red Cell Distribution Width 20.9 % (11.6-14.8) H Platelet Count 473 K/UL (150-450) H Mean Platelet Volume 5.4 FL (6.5-10.1) L Neutrophils (%) (Auto) 84.1 % (45.0-75.0) H Lymphocytes (%) (Auto) 6.7 % (20.0-45.0) L Monocytes (%) (Auto) 5.6 % (1.0-10.0) Eosinophils (%) (Auto) 3.2 % (0.0-3.0) H Basophils (%) (Auto) 0.4 % (0.0-2.0) Erythrocyte Sedimentation Rate 4 MM/HR (0-42) Sodium Level 139 mEQ/L (135-145) Potassium Level 3.8 mEQ/L (3.4-4.9) Chloride Level 104 mEQ/L (98-107) Carbon Dioxide Level 22 mEQ/L (20-30) Anion Gap 13 (5-15) Blood Urea Nitrogen 14 mg/dL (7-23) Creatinine 0.5 mg/dL (0.5-0.9) Estimat Glomerular Filtration Rate mL/min (>60) Glucose Level 135 mg/dL (74-106) H Calcium Level 8.2 mg/dL (8.6-10.2) L Phosphorus Level 2.0 mg/dL (2.5-4.8) L Magnesium Level 2.0 mg/dL (1.7-2.5) Total Bilirubin < 0.2 mg/dL (0.0-1.2) Aspartate Amino Transf (AST/SGOT) 9 U/L (5-40) Alanine Aminotransferase (ALT/SGPT) 19 U/L (3-33) Alkaline Phosphatase 75 U/L (35-104) C-Reactive Protein, Quantitative 5.0 mg/dL (< 0.5) H Total Protein 4.1 g/dL (6.6-8.7) L Albumin 2.1 g/dL (3.5-5.2) L Globulin 2.0 g/dL Albumin/Globulin Ratio 1.0 (1.0-2.7) Current Medications Medications (Trade) Dose Ordered Sig/Porfirio Route PRN Reason Start Time Stop Time Status Last Admin Dose Admin Acetaminophen (Tylenol) 650 mg Q4H PRN ORAL fever>100.5 09/05/16 21:00 10/05/16 20:59 Al Hydroxide/Mg Hydroxide (Mylanta II) 30 ml Q6H PRN ORAL dyspepsia 09/05/16 21:00 10/05/16 20:59 Chlorhexidine Gluconate 1 applic 1 applic DAILY TOPIC 09/06/16 09:00 10/06/16 08:59 09/09/16 09:13 Dextrose/Sodium Chloride 1,000 ml @ 75 mls/hr [id number] IV 09/05/16 21:00 10/05/16 20:59 09/09/16 04:14 Diphenhydramine HCl (Benadryl) 25 mg Q6H PRN ORAL Itching/Pruritis 09/05/16 21:00 10/05/16 20:59 Levothyroxine Sodium (Synthroid) 112 mcg ACBREAKFAST ORAL 09/06/16 06:30 10/06/16 06:29 09/09/16 06:28 Losartan Potassium (Cozaar) 100 mg DAILYPRN PRN ORAL sbp>160 09/05/16 21:00 10/05/16 20:59 Metronidazole (Flagyl) 100 ml @ 100 mls/hr Q8HR IVPB 09/05/16 22:00 09/12/16 21:59 09/09/16 06:27 Nitroglycerin (Ntg) 0.4 mg Q5M X 3 DOSES PRN SL Prn Chest Pain 09/05/16 20:15 10/05/16 20:14 Ondansetron HCl (Zofran) 4 mg Q6H PRN IVP Nausea & Vomiting 09/05/16 21:00 10/05/16 20:59 Phenytoin (Dilantin) 100 mg EVERY 8 HOURS ORAL 09/05/16 22:00 10/05/16 21:59 09/09/16 06:28 Polyethylene Glycol (Miralax) 17 gm HSPRN PRN ORAL Constipation 09/05/16 21:00 10/05/16 20:59 Sodium Phosphate/ Sodium Chloride (NaPO4/Sodium Chloride) 285 ml @ 47.5 mls/hr ONCE ONCE IVPB 09/09/16 13:00 09/09/16 18:59 Temazepam (Restoril) 15 mg HSPRN PRN ORAL Insomnia 09/05/16 21:00 09/12/16 20:59 Vancomycin HCl (Vancomycin) 125 mg FOUR TIMES A DAY ORAL 09/05/16 21:00 09/12/16 20:59 09/09/16 09:13 JUAN PABLO MORIN September 09, 2016 12:27
[2016-09-09] MEDS ORDERED: Sodium Phosphate 30 MM in NS 275 ML IVPB ONE (13:00)
[2016-09-09] MEDS ORDERED: DuoNeb 0.5-3(2.5)mg/3ml neb HHN PRN (13:30)
--- NOTE | 2016-09-09 14:44 | General Progress Note ---
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 CA 125 elevation >> 77.9 CEA elevation >> 3.9 CA19-9 >> unremarkable OB stool positive cdiff positive >> flagyl surgical recs noted >> family declined surgery defer GI procedures at this time fu biopsy electrolyte replacement monitor H&H, transfuse prn H2B abx fu labs Subjective Allergies: Coded Allergies: CODEINE (Verified Allergy, Unknown, 09/04/16) Subjective calm minimally verbal Objective Last 24 Hour Vital Signs Date Time Temp Pulse Resp B/P Pulse Ox O2 Delivery O2 Flow Rate FiO2 09/09/16 14:35 153/114 09/09/16 13:35 84 20 98 Nasal Cannula 4.0 36 09/09/16 13:25 36 09/09/16 13:25 82 20 96 Nasal Cannula 4.0 36 09/09/16 13:25 96 Nasal Cannula 4.0 36 09/09/16 13:25 Nasal Cannula 4.0 36 09/09/16 13:25 82 20 Nasal Cannula 4.0 36 09/09/16 13:15 191/110 09/09/16 12:10 97.9 90 17 137/90 99 Nasal Cannula 2.0 09/09/16 08:57 97.0 18 148/81 Nasal Cannula 2.0 96 09/09/16 04:00 97.1 92 18 134/81 Nasal Cannula 2.0 09/09/16 00:00 97.6 83 20 144/84 98 Nasal Cannula 09/08/16 20:00 97.0 79 20 140/80 98 Nasal Cannula 2.0 09/08/16 17:14 Nasal Cannula 2.0 28 09/08/16 17:14 98 Nasal Cannula 2.0 28 09/08/16 16:10 97.3 73 18 126/71 97 Nasal Cannula 2.0 Intake and Output 09/08/16 09/09/16 19:00 07:00 Intake Total 1150 ml 195 ml Balance 1150 ml 195 ml Intake Oral 600 ml 120 ml IV Total 550 ml 75 ml # Voids 3 2 # Bowel Movements 1 Laboratory Tests 09/09/16 05:30: White Blood Count 16.7H, Red Blood Count 4.64, Hemoglobin 11.7L, Hematocrit 35.2L, Mean Corpuscular Volume 76L, Mean Corpuscular Hemoglobin 25.2L, Mean Corpuscular Hemoglobin Concent 33.1, Red Cell Distribution Width 20.9H, Platelet Count 473H, Mean Platelet Volume 5.4L, Neutrophils (%) (Auto) 84.1H, Lymphocytes (%) (Auto) 6.7L, Monocytes (%) (Auto) 5.6, Eosinophils (%) (Auto) 3.2H, Basophils (%) (Auto) 0.4, Erythrocyte Sedimentation Rate 4, Sodium Level 139, Potassium Level 3.8, Chloride Level 104, Carbon Dioxide Level 22, Anion Gap 13, Blood Urea Nitrogen 14, Creatinine 0.5, Estimat Glomerular Filtration Rate , Glucose Level 135H, Calcium Level 8.2L, Phosphorus Level 2.0L, Magnesium Level 2.0, Total Bilirubin < 0.2, Aspartate Amino Transf (AST/SGOT) 9, Alanine Aminotransferase (ALT/SGPT) 19, Alkaline Phosphatase 75, C-Reactive Protein, Quantitative 5.0H, Total Protein 4.1L, Albumin 2.1L, Globulin 2.0, Albumin/ Globulin Ratio 1.0 Height (Feet): 4 Height (Inches): 11.00 Weight (Pounds): 90 Objective debilitated elderly woman NCAT supple CTA RRR soft distended tympanitic, No TTP (+) B/L LE edema ANGELINA BEVERLY September 09, 2016 14:44
[2016-09-09] MEDS ORDERED: Nitroglycerin Subl 0.4mg tab (Bottle Of 25) SL PRN (15:30)
[2016-09-09] MEDS ORDERED: Miralax 17gm pkt ORAL PRN (16:00)
[2016-09-09] MEDS ORDERED: Mylanta II UD 30ml ORAL PRN (16:00)
[2016-09-09] MEDS ORDERED: Losartan 50mg tab ORAL PRN (16:00)
[2016-09-09] MEDS ORDERED: D5NS 1,000 ML IV SCH (16:00)
--- NOTE | 2016-09-09 16:46 | Consultation ---
Consult Note Assessment/Plan Cardiology for Dr. Hooks Full consult dictated # [id number] YASMANY HUTCHISON September 09, 2016 16:46
[2016-09-09] MEDS: DuoNeb 0.5-3(2.5)mg/3ml neb HHN PRN ×2 (17:39→21:57)
--- NOTE | 2016-09-09 19:00 | Pulmonology Progress Note ---
Assessment/Plan Problems: (1) Acute chest pain (2) C. difficile colitis (3) Hemorrhagic shock (4) Abdominal mass (5) Dementia (6) Seizure disorder (7) Hypothyroidism (8) HTN (hypertension) (9) Lower GI bleed Assessment/Plan transfer to [facility] cardio evaluation wbc decreasing finally on Flagy and Vanco po Echo and doppler of carotid artery noted US guided biopsy done, results will be available on Saturday,( Saturday is a holiday) Subjective ROS Limited/Unobtainable: No Interval Events: c/o chest pain Constitutional: Reports: no symptoms HEENT: Repors: no symptoms Allergies: Coded Allergies: CODEINE (Verified Allergy, Unknown, 09/04/16) Objective Last 24 Hour Vital Signs Date Time Temp Pulse Resp B/P Pulse Ox O2 Delivery O2 Flow Rate FiO2 09/09/16 17:39 110 20 98 Nasal Cannula 4.0 36 09/09/16 17:39 110 20 99 Nasal Cannula 4.0 36 09/09/16 15:46 108 09/09/16 15:30 97.9 95 17 129/88 97 Nasal Cannula 2.0 09/09/16 14:35 153/114 09/09/16 13:35 84 20 98 Nasal Cannula 4.0 36 09/09/16 13:25 36 09/09/16 13:25 82 20 96 Nasal Cannula 4.0 36 09/09/16 13:25 96 Nasal Cannula 4.0 36 09/09/16 13:25 Nasal Cannula 4.0 36 09/09/16 13:25 82 20 Nasal Cannula 4.0 36 09/09/16 13:15 191/110 09/09/16 12:10 97.9 90 17 137/90 99 Nasal Cannula 2.0 09/09/16 08:57 97.0 18 148/81 Nasal Cannula 2.0 96 09/09/16 04:00 97.1 92 18 134/81 Nasal Cannula 2.0 09/09/16 00:00 97.6 83 20 144/84 98 Nasal Cannula 09/08/16 20:00 97.0 79 20 140/80 98 Nasal Cannula 2.0 Intake and Output 09/08/16 09/09/16 19:00 07:00 Intake Total 1150 ml 195 ml Balance 1150 ml 195 ml Intake Oral 600 ml 120 ml IV Total 550 ml 75 ml # Voids 3 2 # Bowel Movements 1 General Appearance: cachetic HEENT: normocephalic, atraumatic Respiratory/Chest: chest wall non-tender, lungs clear Breasts: no masses Cardiovascular: normal peripheral pulses Abdomen: normal bowel sounds, soft, non tender Genitourinary: normal external genitalia Skin: no rash 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 Laboratory Tests 09/09/16 05:30: White Blood Count 16.7H, Red Blood Count 4.64, Hemoglobin 11.7L, Hematocrit 35.2L, Mean Corpuscular Volume 76L, Mean Corpuscular Hemoglobin 25.2L, Mean Corpuscular Hemoglobin Concent 33.1, Red Cell Distribution Width 20.9H, Platelet Count 473H, Mean Platelet Volume 5.4L, Neutrophils (%) (Auto) 84.1H, Lymphocytes (%) (Auto) 6.7L, Monocytes (%) (Auto) 5.6, Eosinophils (%) (Auto) 3.2H, Basophils (%) (Auto) 0.4, Erythrocyte Sedimentation Rate 4, Sodium Level 139, Potassium Level 3.8, Chloride Level 104, Carbon Dioxide Level 22, Anion Gap 13, Blood Urea Nitrogen 14, Creatinine 0.5, Estimat Glomerular Filtration Rate , Glucose Level 135H, Calcium Level 8.2L, Phosphorus Level 2.0L, Magnesium Level 2.0, Total Bilirubin < 0.2, Aspartate Amino Transf (AST/SGOT) 9, Alanine Aminotransferase (ALT/SGPT) 19, Alkaline Phosphatase 75, C-Reactive Protein, Quantitative 5.0H, Total Protein 4.1L, Albumin 2.1L, Globulin 2.0, Albumin/ Globulin Ratio 1.0 Current Medications Medications (Trade) Dose Ordered Sig/Porfirio Route PRN Reason Start Time Stop Time Status Last Admin Dose Admin Acetaminophen (Tylenol) 650 mg Q4H PRN ORAL fever>100.5 09/09/16 16:00 10/09/16 15:59 Al Hydroxide/Mg Hydroxide (Mylanta II) 30 ml Q6H PRN ORAL dyspepsia 09/09/16 16:00 10/09/16 15:59 Albuterol/ Ipratropium (DuoNeb 0.5-3(2.5)mg/3ml) 3 ml Q4H PRN HHN Shortness of Breath 09/09/16 16:00 09/14/16 15:59 09/09/16 17:39 Chlorhexidine Gluconate (Rajni-Hex 2%) 1 applic DAILY TOPIC 09/10/16 09:00 10/10/16 08:59 Dextrose/Sodium Chloride 1,000 ml @ 75 mls/hr [id number] IV 09/09/16 16:00 10/09/16 15:59 09/09/16 16:02 Diphenhydramine HCl (Benadryl) 25 mg Q6H PRN ORAL Itching/Pruritis 09/09/16 16:00 10/09/16 15:59 Labetalol HCl (Normodyne) 100 mg Q12HR ORAL 09/09/16 21:00 10/09/16 20:59 Levothyroxine Sodium (Synthroid) 112 mcg ACBREAKFAST ORAL 09/10/16 06:30 10/10/16 06:29 Metronidazole (Flagyl) 100 ml @ 100 mls/hr Q8HR IVPB 09/09/16 22:00 09/16/16 21:59 Nitroglycerin (Ntg) 0.4 mg Q5M X 3 DOSES PRN SL Prn Chest Pain 09/09/16 15:30 10/09/16 15:29 Ondansetron HCl (Zofran) 4 mg Q6H PRN IVP Nausea & Vomiting 09/09/16 16:00 10/09/16 15:59 Phenytoin (Dilantin) 100 mg EVERY 8 HOURS ORAL 09/09/16 22:00 10/09/16 21:59 Polyethylene Glycol (Miralax) 17 gm HSPRN PRN ORAL Constipation 09/09/16 16:00 10/09/16 15:59 Sodium Phosphate 30 mm/Sodium Chloride 285 ml @ 47.5 mls/hr ONCE ONCE IVPB 09/09/16 13:00 09/09/16 18:59 09/09/16 14:38 Temazepam (Restoril) 15 mg HSPRN PRN ORAL Insomnia 09/09/16 21:00 09/16/16 20:59 Vancomycin HCl (Vancomycin) 125 mg FOUR TIMES A DAY ORAL 09/09/16 18:00 09/16/16 17:59 09/09/16 17:26 BARBARA ANDRES September 09, 2016 19:00
[2016-09-09] MEDS ORDERED: Phenytoin 100mg cap ORAL SCH (22:00)
[2016-09-09] MEDS ORDERED: metroNIDAZOLE 500mg 100 ML IVPB SCH (22:00)
[2016-09-09 23:13] LABS: ABG ALLEN TEST POSITIVE; ABG BASE EXCESS -10.6; ABG PCO2 39.3 mmHg (35.0-45.0)
[2016-09-10] MEDS ORDERED: Zemuron 50mg/5ml Inj IV ONE (00:47)
[2016-09-10] MEDS ORDERED: Etomidate 40mg/20ml Inj IV ONE (00:47)
[2016-09-10] MEDS ORDERED: Succinylcholine 20mg/ml 10ml vial ONE (00:47)
--- NOTE | 2016-09-10 03:01 | Consultation ---
DATE OF CONSULTATION: CARDIOLOGY CONSULTATION: Coverage for Dr. Hooks. REASON FOR CONSULT: Uncontrolled hypertension and chest pain. HISTORY OF PRESENT ILLNESS: History was primarily from the chart as the patient is unable to give much history due to dementia. The patient is an 86-year-old woman with a history of hypertension, hypothyroidism and dementia, who was initially admitted on 09/04/2016 with diarrhea. She was diagnosed with Clostridium difficile colitis and is being treated with antibiotic, Flagyl, per Infectious Disease. She had left abdominal pain and underwent evaluation including a CT scan, which showed a large 12 x 7 cm abdominal mass with central necrosis consistent with malignancy. There was compression of the adjacent structures causing hydronephrosis. She had elevated tumor markers including CEA and CA-125. Invasive workup for diagnosis and treatment was declined by the patient's family. Today, she was noted to have blood pressure of 191/110 as well as chest pain and was transferred to telemetry. Cardiology evaluation was requested. An echo has been performed, which was technically difficult study but showed an EF of 60 to 65%, left ventricular hypertrophy, and no significant valve disease. The patient herself cannot recall any chest pain and denies any current complaint. She appears in no respiratory distress, comfortable. PAST MEDICAL HISTORY: As noted above. History of hypertension, dementia, hyperlipidemia, hypothyroidism, breast cancer with breast reconstruction, bilateral mastectomy, and bilateral breast implants, left intact and right collapsed. CURRENT MEDICATIONS: Levothyroxine 112 mcg daily, metronidazole 100 intravenous every 8 hours, Dilantin 100 mg p.o. q.8 hours, Restoril 15 mg nightly p.r.n. , vancomycin 125 mg p.o. four times daily, Tylenol p.r.n., losartan 100 mg p.o. daily p.r.n., nitroglycerin sublingual p.r.n., and MiraLAX 17 g p.o. nightly p.r.n. ALLERGIES: Codeine. SOCIAL HISTORY: Not obtainable from the patient or chart. REVIEW OF SYSTEMS: Not obtainable from the patient or chart. PHYSICAL EXAMINATION: VITAL SIGNS: Blood pressure is 153/114, pulse 95 regular, respirations 17, and afebrile. GENERAL: The patient is alert elderly appearing white female, in no acute distress. HEENT: Normocephalic and atraumatic. Pupils are equal, round, and reactive to light. Sclerae anicteric. NECK: Supple. There is no jugular venous distention. No adenopathy. Carotid pulses are 2+ bilateral without bruits. CHEST: There are bilateral breast implants with the right collapsed. LUNGS: Clear to auscultation bilaterally. HEART: Regular S1 and S2 with no murmurs or S3. ABDOMEN: There is a palpable left sided abdominal mass. Left abdominal tenderness. Normoactive bowel sounds. EXTREMITIES: Without cyanosis, clubbing, or edema. SKIN: No rashes or lesions. LABORATORY DATA: Hemoglobin 11.7, white blood count 16,700, and platelets 473,000. Sodium 139, potassium 3.8, BUN 14, and creatinine 0.5. Troponin on admission was less than 0.3. Albumin 2.1. CA 125, 77.9, CA-19, 5.27. CEA 3.9. EKG shows sinus tachycardia at a rate of 117 beats per minute. [place] -35 degrees. Poor R-wave progression anteriorly (lead placement), left atrial enlargement. No old EKG available for comparison. Chest x-ray from 09/04/2016 shows consolidation in both bases left greater than right. Normal heart size. Bilateral pleural effusions. Chest x-ray shows normal heart size, bilateral pleural effusions, and basilar consolidation. An abdominal and pelvic CT done on 09/04/2016 showed a large mass involving the left muscle measuring 10 x 6 x 11 cm. The liver showed multiple cyst and less than 1 cm low attenuation lesions. ASSESSMENT AND RECOMMENDATIONS: The patient is an 86-year-old woman with history of hypertension, hypothyroidism, and dementia, who presented with diarrhea has been diagnosed with Clostridium difficile colitis but has a large intra-abdominal mass suspected to be an advanced malignancy. She is not felt to be a candidate for surgical treatment or other invasive work up. She is being managed supportively. Today, she complained of chest pain though is a poor historian cannot recall any chest pain. Currently, she is noted to be intermittently severely hypertensive. I would favor treatment with labetalol dose for tachycardia and hypertension. We will check serial EKGs and troponin levels to rule out myocardial infarction or ischemia. Urine studies will be obtained to rule out secondary causes of hypertension. Her overall prognosis is limited based on her underlying poor functional status and presumed advanced malignancy . Georgette Hull M.D. DR: Yani JOB#: [id number] CC:
--- NOTE | 2016-09-10 04:06 | Emergency Room Report ---
History of Present Illness General Chief Complaint: Diarrhea Source: Medical Record Present Illness HPI Is an 86-year-old female with a history of breast cancer status post mastectomy. She was admitted for GI bleeding and also noted to have a large pelvic/abdominal mass. A CODE BLUE was called shan and I responded. According to nursing staff, she has rest or distress and then had a very large coffee-ground emesis in lost her pulse. CPR was initiated. On my response patient had spontaneous return of rhythm. She has good pulse and good blood pressure. On my check she has copious amount of coffee-ground emesis had to be suctioned. I suction the patient an attempt to intubate her. She was a very difficult intubation because several issues. First has copious amount of coffee -ground emesis that is obstructing the view. Second her vocal cords and was very anterior. Was unable to access it with several different attempts. This including using the Glidiscope. Unfortunately she had a very prolonged code. We will get a pulse back after epinephrine and use it again. After 35-40 minutes, she stated PEA rhythm and a code was called. Patient was pronounced at 2338. I notified Dr. Villaseñor. Allergies: Coded Allergies: CODEINE (Verified Allergy, Unknown, 09/04/16) Patient History Past Medical History: see triage record, old chart reviewed Past Surgical History: other Pertinent Family History: other Social History: Denies: smoking Now: No Immunizations: other Reviewed Nursing Documentation: PMH: Agreed, PSxH: Agreed Nursing Documentation-PMH Past Medical History: No History, Except For Hx Cardiac Problems: Yes Hx Hypertension: Yes Hx Cancer: No Hx Gastrointestinal Problems: No History Of Psychiatric Problem: Yes - DEMENTIA Hx Neurological Problems: Yes Hx Dementia: Yes Hx Seizures: Yes Review of Systems All Other Systems: limited - unable to do b/c of condition. Physical Exam Vital Signs Date Time Temp Pulse Resp B/P Pulse Ox O2 Delivery O2 Flow Rate FiO2 09/04/16 01:42 98.8 98 16 124/85 94 Room Air 09/04/16 07:35 2.0 09/04/16 15:52 vitals with hypotension. Asystole and agonal respiration Sp02 EP Interpretation: abnormal General Appearance: severe distress Eyes: bilateral eye PERRL - Sluggish ENT: other - Copious amount of coffee-ground emesis Neck: supple Respiratory: crackles, rales Cardiovascular #1: regular rate, rhythm - Weak Pulse Gastrointestinal: distended, scaphoid Genitourinary: ext genitalia/vag normal Musculoskeletal: other - No movement Procedures Critical Care Time Critical Care Time Critical care is mandated in this patient who presented with cardiac arrest. Patient require my urgent intervention to attenuate the risks of 45 which may lead to cardiovascular collapse and . Critical care time is 35 minutes excluding any reportable procedure. Critical care time included evaluation, multiple reevaluation, looking at old charts, interpreting laboratory and diagnostic data, discussing case with patient and family and consultants, and charting. CPR/Code Blue CPR/Code Blue Narrative please see code sheet for full information Intubation Intubation : Consent: Emergent Intubation Method: nasotracheal, orotracheal Tube Size (cm): 7.5 Medications: Etomidate, Succinylcholine Intubation Complications: nose-unsuccessful attempt, oral-unsuccessful attempt Attempts: Other - Multiple see Patient Tolerated: Other - Unsuccessful Medical Decision Making Diagnostic Impression: Primary Impression: Cardiac arrest Additional Impression: Aspiration of blood ER Course Patient presents with cardiac arrest. This is probably secondary to respiratory arrest from aspiration. She has copious amount of coffee-ground emesis. Unfortunately, I was unable to intubate her. This is after multiple attempts using traditional and also with glidescope. Was also unsuccessful using nasal intubation. I attempted to do emergency cricoidectomy by then she' s been in PEA for 5 minutes. Last Vital Signs Date Time Temp Pulse Resp B/P Pulse Ox O2 Delivery O2 Flow Rate FiO2 09/09/16 22:08 105 18 98 Nasal Cannula 2.0 28 09/09/16 21:31 133/88 09/09/16 20:14 97.0 Status: worsened Disposition: Condition: Referrals: NON PHYSICIAN (PCP) JESUS MANUEL STEWART M.D. September 10, 2016 04:06
[2016-09-10] MEDS ORDERED: Dyna-Hex 2% Top Sol 8oz TOPIC SCH (09:00)
[2016-09-10] MEDS ORDERED: Sodium Phosphate 30 MM in NS 275 ML IVPB ONE (13:00)
--- NOTE | 2016-09-11 07:53 | Cardiology Report ---
APPROVED REPORT EKG Measurement Heart [id number] Sinus tachycardia Possible Left atrial enlargement Left axis deviation Possible Anterolateral infarct, age undetermined Abnormal ECG
--- NOTE | 2016-09-11 15:25 | Discharge Summary ---
Discharge Summary Hospital Course Date of Admission September 04, 2016 at 02:48 Date of Discharge September 10, 2016 at 00:48 Admitting Diagnosis LOWER GI BLEED CRISTIAN Crews is a 86 year old female who was admitted on September 04, 2016 at 02: 48 for Lower Gastrointestinal Bleed Hospital Course summary #[id number] Discharge Discharge Disposition Patient pronounced at 2338 09/09 Discharge Diagnoses: Discharge Instructions Discharge Instructions Special Instructions I have been assigned to complete a D/C Summary on this account. I was not involved in the patient management Suzi Mera NP (Vanchtein) September 11, 2016 15:25
--- NOTE | 2016-09-12 13:00 | Discharge Summary 2 SIG ---
SUMMARY DATE OF ADMISSION: 09/04/2016 DATE OF EXPIRATION: 09/09/2016 REASON FOR ADMISSION: 86-year-old female was brought to the emergency room for evaluation of bloody diarrhea. Her daughter called paramedics since the patient had dark bowel movement for the last two days. The patient had underlying dementia, and was unable to provide any additional information. No reported fevers or chills. No reported nausea or vomiting. No chest pain. No shortness of breath. Workup in the emergency room revealed leukocytosis with WBC of 31.1. Hemoglobin and hematocrit were stable. Electrolytes were stable. Urinalysis was negative for evidence of UTI. BUN -41 and creatinine -0.8. Lactic acid - 2.1. AST -79 and ALT -87. Blood pressure was 95/57. CT of the abdomen and pelvis revealed large 10 x 6.7 x 1.4 mass involving the left psoas muscle extending outside of it. Appearance was highly suspicious for malignancy. Suspected metastatic carcinoma as the etiology as enhancement, characteristics and necrosis were more characteristic of it. However, the primary malignant tumor was certainly a possibility as well. Mild left hydronephrosis secondary to above noted. Anasarca. The patient was pancultured and started on the IV fluids and admitted to the hospital for further management. ADMITTING DIAGNOSES: Hemorrhagic shock Lower GI bleeding Leukocytosis Abdominal mass Dehydration Transaminitis. HOSPITAL STAY: The patient was initially admitted on telemetry, but after seen by primary doctor was transferred to [facility] for closer observation. The patient was initially kept NPO and started on the IV fluids. Hemoglobin and hematocrit were closely monitored. GI, ID and surgery evaluations were requested. GI specialist seen and evaluated the patient.At that time he deferred any GI procedure and recommended manager storage /oncologist evaluation. CT-guided biopsy of mass was done. Pathology revealed malignant spindle cell neoplasm. Stool OB was positive. Cancer tumor markers revealed elevated CA 125- 77.9. Elevated CEA- 3.9 and CA 19-9 within normal limits. Stool for C. difficile was positive. Blood culture were negative. Urine culture revealed mixed gram-positive organisms. ID followed. Antibiotic regimen was optimized. The patient was on oral vancomycin. Leukocytosis with slow trend down. Surgeon seen and evaluated the patient. Per surgery, the patient had a large left retroperitoneal mass, which might not be amenable to resection , in addition patient might not be able to tolerate the big operation given her age and multiple chronic comorbidities. The family and patient subsequently decided not to have surgery. Quality of life was more important, and given her state of health, the patient would not benefit from surgical intervention. The family wanted the patient to be comfortable until the time comes. No acute surgical interventions were planned. Hemoglobin and hematocrit were stable. Urologist seen the patient in lieu of mild hydroureter seen on the CT of the abdomen. Urologist did not recommend any further option in terms of her left kidney. He stated that if the patient would ever be considered to be a surgical candidate for removal of the mass then she would probably need a left urethral stenting. Other than that, considering her stable renal function and overall prognosis, urologist did not think that intervention would be necessary at that point. LFTs were trending down. Electrolytes imbalances were addressed and corrected as needed. Venous duplex of bilateral lower extremities was negative for evidence of acute DVT. The patient was on DVT and GI prophylaxis. Echocardiogram revealed preserved ejection fraction of 60% to 65%. Chest x-ray revealed bilateral pleural effusion. Code Blue was called on 09/09/2016.The patient had a very large coffee-grounds emesis and lost her pulse. CPR was initiated. Patient had a spontaneous return of pulse but had a copious amount of coffee-ground emesis and need to be suctioned and intubated to protect the airway. Attempt was made after suctioning to intubate the patient. The patient was a very difficult intubation, given several issue such as copious amount of coffee-ground emesis that was obstructing the view and vocal cords location was very anterior. Several different attempts including using the GlideScope, were done in ED. The patient had a prolonged code. After 35 to 40 minutes, the patient noted to be in pulseless electrical activity rhythm and Code Blue was called. The patient was pronounced at 23:38 on 09/09/2016. Cause of : cardiopulmonary arrest. FINAL DIAGNOSES: 1. Hemorrhagic shock. 2. Possible sepsis 3. Lower gastrointestinal bleeding. 4. Clostridium difficile colitis. 5. Dehydration. 6. Large left retroperitoneal malignant mass. 7. Transaminitis. 8. Seizure disorder 9. Status post cardiopulmonary arrest. 10. Left hydronephrosis. 11. Electrolyte imbalance. 12. Elevated tumor markers (CA-125 and CEA). 13. Dementia. Dixon Villaseñor M.D. I have been assigned to dictate discharge summary on this account and I was not involved in the patient's management. Suzi Mera (Vanchtein) NMango DR: AGUILA JOB#: [id number] CC: [id number]
== END 2016-09-09 23:48 | disposition expired | DRG 377 ==
LOC: EDBD 01:34 → EMR 02:00 → 4E 02:48 → EDBEDREQ 04:42 → EDBEDREQSVC 06:17 → EDBEDREQTM 06:17 → EDBEDREQ 06:17 → 2E 08:17 → 2W 13:10 → 4W 09-05 19:50 → 2E 09-09 15:32 → UNDODISIN 09-10 00:48
PROC: 0WBH3ZX Excision of Retroperitoneum, Percutaneous Approach, Diagnostic (ICD-10-PCS; principal; 2016-09-06)
PROC: 02HV33Z Insertion of Infusion Device into Superior Vena Cava, Percutaneous Approach (ICD-10-PCS; principal; 2016-09-06)
DX: K92.2 Gastrointestinal hemorrhage, unspecified (principal); A41.9 Sepsis, unspecified organism; R57.9 Shock, unspecified; E43 Unspecified severe protein-calorie malnutrition; C78.6 Secondary malignant neoplasm of retroperitoneum and peritoneum; A04.7 Enterocolitis due to Clostridium difficile; N13.30 Unspecified hydronephrosis; Z68.1 Body mass index [BMI] 19.9 or less, adult; E86.0 Dehydration; F03.90 Unspecified dementia, unspecified severity, without behavioral disturbance, psychotic disturbance, mood disturbance, and anxiety; K57.31 Diverticulosis of large intestine without perforation or abscess with bleeding; E86.1 Hypovolemia; E03.9 Hypothyroidism, unspecified; I10 Essential (primary) hypertension; G40.909 Epilepsy, unspecified, not intractable, without status epilepticus; Z88.6 Allergy status to analgesic agent; Z85.3 Personal history of malignant neoplasm of breast; Z90.13 Acquired absence of bilateral breasts and nipples
CPT/HCPCS: 36415; 36569; 36600; 71010; 74177; 76942; 80048; 80053; 80150; 81003; 82150; 82270; 82378; 82553; 82803; 83605; 83690; 83735; 84100; 84484; 85007; 85025; 85610; 85651; 85730; 86140; 86301; 86304; 86850; 86900; 86901; 86920; 87040; 87086; 87324; 92950; 93005; 93306; 93925; 93970; 94640; 94664; 94760; J7620; J8499